=== PATIENT | female | born 1945 | race Caucasian/White ===

== ENCOUNTER 2017-06-19 04:45 | Inpatient (IN) ==
--- NOTE | 2017-06-19 11:20 | History & Physical Report ---
Date of Encounter: 06/19/17 Time of Encounter: 11:20 24 Hour HP Update - Instructions Instructions: If the History and Physical is less than 30 days old and was completed prior to A.M. admission and or procedure and has NOT been updated on calendar day of procedure please complete this update prior to performing procedure. - Update Patient reports changes in Medical Condition: No Changes in examination, assessment, or condition: No Changes in Medication: No Preop tests/diagnostics Reviewed: Yes
[2017-06-19] MEDS ORDERED: Naloxone 0.4 MG/ML INJ IVP PRN (12:56)
[2017-06-19] MEDS ORDERED: *HR* HYDROcodone/Acet 7.5/325 mg TABLET PO PRN (13:17)
[2017-06-19] MEDS ORDERED: Ipratropium/Albuterol Neb 3 ML IH PRN (13:17)
--- NOTE | 2017-06-19 13:30 | Event Note ---
Date of Encounter: 06/19/17 Time of Encounter: 12:30 - Cardiology Event Note Laboratory Tests 06/05/16 06/05/17 09:47 12:43 Potassium 4.0 Creatinine 1.25 H Est GFR (Non-Af Amer) 42 L TSH 2.012 Patient presents for direct admission for antiarrhythmic initiation of sotalol 80 mg by mouth twice a day. ECG today showed 100% atrial ventricular pacing in the 80s with QT/QTC 448/470 ms. Patient seen by Dr. Acosta June 13, 2017 in outpatient setting and set up for admission. Patient denies any significant symptoms or changes in her overall state of health since last seen in the clinic. She denies any chest pain, short of breath, palpitations, any active bleeding or blood loss. Reports compliance with current medical regimen. Of note , on SSRI. Per discussion with Dr. Acosta, will initiate sotalol 80 mg by mouth twice a day and monitor QTc closely. Continue with anticoagulation of Xarelto, has not missed any doses.
[2017-06-19] MEDS: *HR* Metformin 500 MG TABLET PO SCH (16:21)
[2017-06-19] MEDS: Insulin DETEMIR 100 UNIT/ML X5UNITS SQ SCH (21:21)
[2017-06-19] MEDS: Gabapentin 300 MG CAPSULE PO SCH (21:21)
--- NOTE | 2017-06-20 08:07 | Electrocardiograph Report ---
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
--- NOTE | 2017-06-20 08:13 | Electrocardiograph Report ---
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
[2017-06-20] MEDS: Cyanocobalamin (B-12) 1,000 MCG TABLET PO SCH (08:33)
[2017-06-20] MEDS: Aspirin 81 MG TAB.CHEW PO SCH (08:34)
[2017-06-20] MEDS: *HR* Metformin 500 MG TABLET PO SCH ×2 (08:35→17:34)
[2017-06-20] MEDS: Isosorbide MONOnitrate (24 HR) 30 MG TAB.ER.24H PO SCH (08:35)
[2017-06-20] MEDS: Ascorbic Acid 500 MG TABLET PO SCH (08:36)
[2017-06-20] MEDS ORDERED: *HR* Rivaroxaban 10 MG TABLET PO SCH (09:00)
[2017-06-20] MEDS ORDERED: Fenofibrate 54 MG TABLET PO SCH ×2 (09:00→17:00)
[2017-06-20] MEDS ORDERED: *HR* Glimepiride 4 MG TABLET PO SCH (09:00)
--- NOTE | 2017-06-20 09:02 | Cardiology Progress Note ---
Date of Encounter: 06/20/17 Time of Encounter: 09:00 Assessment and Plan (1) PAF (paroxysmal atrial fibrillation) Current Visit: Yes Status: Chronic Per Cardiology: History of paroxysmal atrial fibrillation. Currently AV pacing in the 80s. Status post 2 doses of sotalol 80 mg by mouth every 12 hours. Current QT/QTC 453 /493 ms. Remains on home dose of beta nemesio. Anticoagulated with Xarelto, has not missed any doses in 30 days. (2) Coronary artery disease Current Visit: No Status: Chronic Per Cardiology: Hx of CAD. CP free. Qualifiers: Coronary Disease-Associated Artery/Lesion type: [place] artery [place] vs. transplanted heart: [place] heart Associated angina: without angina Qualified Code(s): I25.10 - Atherosclerotic heart disease of [place] coronary artery without angina pectoris (3) Hypoglycemia Current Visit: No Status: Acute Per Cardiology: Reports last Hgb A1C 6.1. Reports recently low blood sugars in the am and PCP has been adjusting meds. Glucose noted to be in the 40's this am. Will consult Endocrine for further recs/eval-- no available inpatient coverage. Will c/s Hospitalist team. Discussion w patient/family: The assessment and plan as outlined above was discussed with the patient who expressed understanding and agreement. All questions were answered. Thank you for involving us in the care of your patient. Please call with any questions. Subjective Principal diagnosis: PAF, Sotalol Initiation Interval history: Patient denies any chest pain, shortness of breath, palpitations. Reports blood sugars this morning in the 40s and has been running low at home. She reports PCP recently adjusting diabetes medications. Reports felt a little "sleepy this morning ". Objective Vital Signs, Last 4 Hours Temp Pulse Resp BP Pulse Ox 06/20/17 08:42 98.3 F 71 18 104/63 95 General: Conversant, No Apparent Distress HEENT: Atraumatic, Normocephaly, Mucus Membranes Moist Neck: No JVD, Normal carotid pulses Cardiac: Reg Rate and Rhythm, Normal S1 and S2, No Murmur Lungs: Normal Breath Sounds, No Wheeze, Rales, Rhonchi Neuro: Alert and responsive, No focal deficits noted Abdomen: Soft, Non-Tender Skin: No rashes noted on visualized skin Musculoskeletal: No Chest Wall Tenderness Extremities: No Clubbing, No Cyanosis, No Edema, Normal Pulses Results Laboratory Tests 06/05/16 06/05/17 06/05/17 09:47 12:43 12:43 Creatinine 1.25 H Est GFR (Non-Af Amer) 42 L Hemoglobin A1c 6.1 H TSH 2.012 - EKG Interpretation EKG results cardiology: other (Remains AV paced on telemetry in the 80s) - VTE Reasons for not Prescribing Prophylaxis: Not indicated-Anticoagulated or INR therapeutic Consult Discharge Plan - Plan Referrals: Gideon Aguilera DO [Primary Care Provider] - 06/28/17 12:00 pm () Martin Acosta DO [Partnered Physician] - (OFFICE WILL CALL PATIENT WITH APPOINTMENT)
[2017-06-20] MEDS: Insulin DETEMIR 100 UNIT/ML X5UNITS SQ SCH ×2 (09:42→21:59)
[2017-06-20 10:13] LABS: Basophils % 0.5 %; Eosinophils # 0.2 K/mcL (0.0-0.6); Eosinophils % 2.6 %; Hematocrit 38.2 % (35.3-44.9); Hemoglobin 12.7 g/dL (11.5-15.4); Immature Granulocytes % 0.4 % (0-4); Immature Platelets 3.8 % (1.1-6.1); Lymphocytes # 1.2 K/mcL (0.6-4.6); Mean Corpuscular HGB Conc 33.2 g/dL (31.6-35.5); Mean Corpuscular Hemoglobin 30.3 pg (28.0-33.3); Mean Corpuscular Volume 91.2 fL (83.0-100.0); Mean Platelet Volume 10.8 fL (9.4-12.4); Monocytes # 0.6 K/mcL (0.0-1.3); Monocytes % 7.9 %; Neutrophils # 5.4 K/mcL (1.6-8.9); Platelet Count 250 K/mcL (140-400); Red Blood Count 4.19 M/mcL (3.82-4.97); Red Cell Distribution Width 14.4 % (11.5-14.5); Segmented Neutrophils % 72.6 %
[2017-06-20 10:21] LABS: Magnesium 1.9 mg/dL (1.6-2.6)
[2017-06-20 10:26] LABS: Albumin 3.5 g/dL (3.5-5.0); Albumin/Globulin Ratio 0.9 (1.1-2.2); Bilirubin,Total 0.4 mg/dL (0.2-1.2); Calcium 9.7 mg/dL (8.6-10.8); Globulin 3.8 g/dL (2.4-3.5); Potassium 4.1 mEq/L (3.5-4.5); Total Protein 7.3 g/dL (6.0-8.3)
[2017-06-20 10:47] LABS: Thyroid Stimulating Hormone 1.155 mcIU/mL (0.350-4.840)
[2017-06-20 11:20] LABS: Hemoglobin A1C 6.1 %
--- NOTE | 2017-06-20 16:05 | Internal Medicine Consult Note ---
<JesuMckay - Last Filed: 06/20/17 16:08> Date of Encounter: 06/20/17 Time of Encounter: 15:59 - Assessment and Plan (1) PAF (paroxysmal atrial fibrillation) Current Visit: Yes Status: Chronic Assessment and plan: Cardiology is primary team and initiated Sotalol yesterday Rate controlled on Lopressor 50 mg BID and heart monitor shows paced rhythm with rate in 70s Currently anticoagulated on Xarelto without issues of bleeding (2) Hypoglycemia Current Visit: Yes Status: Acute Assessment and plan: Patient's sugar well controlled today in the 100s Will decrease her long acting insulin Levemir from 40 BID to 20 units BID Start on low dose SSI with ACHS accuchecks Adding PRN dextrose for hypoglycemia (3) Insulin dependent type 2 diabetes mellitus, controlled Current Visit: Yes Status: Chronic Assessment and plan: Patient did have A1c checked today which was 6.1, unchanged from previous result last month We will decrease her basal insulin dose by half and add low dose SSI as above Recommend also decreasing her home Lantus by half upon discharge Will plan on speaking to her primary care physician Dr. Aguilera tomorrow if she is ready for DC (4) Coronary artery disease Current Visit: No Status: Chronic Assessment and plan: Cardiology following, appreciate management Continue home ASA, BB, statin, Imdur Qualifiers: Coronary Disease-Associated Artery/Lesion type: [place] artery [place] vs. transplanted heart: [place] heart Associated angina: without angina Qualified Code(s): I25.10 - Atherosclerotic heart disease of [place] coronary artery without angina pectoris (5) Hypertension Current Visit: No Status: Chronic Assessment and plan: Pressures well controlled since admission Continue home Dyazide, BB Qualifiers: Hypertension type: essential hypertension Qualified Code(s): I10 - Essential (primary) hypertension (6) CKD (chronic kidney disease), stage III Current Visit: Yes Status: Chronic Assessment and plan: Patient's creatinine this morning was 1.23 which is at her baseline Continue to monitor Cr, electrolytes and avoid nephrotoxic agents (7) DVT prophylaxis Current Visit: Yes Status: Acute Assessment and plan: Continue home Xarelto Internal Medicine - CN: HPI - Data of Consult Patient: new to practice Consult date: 06/20/17 Requesting Physician: Martin Acosta DO - Consult Narrative Reason for consult: hypoglycemia History of present illness: Ms. Ayon is a 71 year old female who was admitted by cardiology for sotalol initiation for her paroxysmal atrial fibrillation. We are being consulted for management of hypoglycemia. Patient states that she checks her sugars regularly at home and states that she has observed low readings recently. She claims that in the mornings it usually is below 60 and even through the middle of the day it is under 100. Patient denies any symptoms such as shaking, lightheadedness, diaphoresis. Her primary care physician is Dr. Quiros who manages her diabetes medications which includes metformin, Glimepiride, Trulicity, and 40 units of Lantus twice a day. She states that she just had her glimepiride reduced from 4 mg to 2 mg. Her A1c was checked during this visit and that was 6.1, and has been below 7 for the last half year. Patient does report mild chest discomfort which she relates to A. fib, but denies any shortness of breath, fevers, nausea, vomiting, diarrhea. She has also been on Xarelto for almost a year but denies any issues with bleeding. Past Med Surg Social Fam HX - Past Medical History Medical history: arthritis, asthma, atrial fibrillation, diabetes, GERD, hyperlipidemia, hypertension, malignancy, myocardial infarction Psychiatric history: anxiety, depression - Past Surgical History Surgical History: angioplasty/stent, cataract, cholecystectomy, knee replacement , orthopedic, other, pacemaker/AICD, AICD - Social History Smoking Status: Never smoker Smokeless Tobacco Status: No Alcohol use: none Drug use: none - Constitutional Constitutional: no fever(s), no falls, no weakness, no weight loss - EENT Eyes: blurry vision (at times in the morning), no loss of vision, no pain - Cardiovascular Cardiovascular ROS IM: chest pain, irregular heart rhythm, no dyspnea, no dyspnea on exertion, no edema, no lightheadedness, no syncope - Respiratory Respiratory: no cough, no dyspnea, no wheezing, no change in phlegm color - Gastrointestinal Gastrointestinal: no abdominal pain, no diarrhea, no melena, no nausea, no vomiting - Genitourinary Genitourinary: no dysuria, no hematuria, no urinary frequency, no urinary hesitancy, no urinary incontinence - Musculoskeletal Musculoskeletal ROS IM: no arthralgias, no numbness, no tingling - Integumentary Integumentary IM: no erythema, no rash - Neurological Neurological ROS: no frequent falls, no weakness Internal Medicine - CN: Meds Acyclovir [Zovirax] 800 mg PO DAILY 04/20/15 [History] Sertraline [Zoloft] 150 mg PO HS 04/20/15 [History] Simvastatin [Zocor] 40 mg PO HS 04/20/15 [History] Ipratropium/Albuterol Neb [Duoneb] 3 ml IH Q4HR PRN #50 vial.neb 06/01/16 [Rx] Ascorbate Calcium/Bioflavonoid [[place]-C 1,000 mg Tablet] 1 tab PO DAILY [History] Aspirin 81 mg PO DAILY 09/19/16 [History] Fenofibrate Nanocrystallized [Tricor] 145 mg PO DAILY 09/19/16 [History] Gabapentin [Neurontin] 300 mg PO HS 09/19/16 [History] Insulin Glargine,Hum.rec.anlog [Lantus Solostar] 40 unit SQ BID 09/19/16 [ History] Isosorbide MONOnitrate (24 HR) [Imdur] 30 mg PO DAILY 09/19/16 [History] Montelukast [Singulair] 10 mg PO DAILY 09/19/16 [History] Omeprazole [PriLOSEC] 40 mg PO DAILY 09/19/16 [History] Rivaroxaban [Xarelto] 20 mg PO DAILY 09/19/16 [History] Triamterene/HCTZ 37.5/25mg [Dyazide] 1 each PO DAILY 09/19/16 [History] Cyanocobalamin (Vitamin B-12) [Vitamin B-12] 1,000 mcg SL DAILY 01/17/17 [ History] Dulaglutide [Trulicity] 0.75 mg SQ TH 01/17/17 [History] HYDROcodone/Acet 7.5/325 mg [[place] 7.5-325 mg] 1 tab PO Q6H PRN #30 tablet 01/17 [Rx] Metoprolol [Lopressor] 100 mg PO BID 01/17/17 [History] Furosemide [Lasix] 20 mg PO DAILY PRN 06/19/17 [History] Glimepiride [Amaryl] 4 mg PO DAILY 06/19/17 [History] Metformin HCl [Metformin HCl ER] 500 mg PO BID 06/19/17 [History] 3 Allergy/AdvReac Type Severity Reaction Status Date / Time pioglitazone Allergy See Verified 02/05/17 19:04 Comments Internal Medicine - CN: Exam - Constitutional Vitals: Temp Pulse Resp BP Pulse Ox 98.0 F 73 18 109/67 94 06/20/17 11:04 06/20/17 11:04 06/20/17 11:04 06/20/17 11:04 06/20/17 11:04 General appearance IM: Present: cooperative, pleasant, no acute distress, obese , answers questions appropriately - Head Head exam: Present: atraumatic, normocephalic - Eye Eye exam: Present: EOMI, sclera anicteric - Neck Neck exam general surgery: Absent: lymphadenopathy, tenderness - Respiratory Respiratory exam: Present: CTAB. Absent: rales, respiratory distress, rhonchi, wheezes, tachypnea - Cardiovascular Cardiovascular exam IM: Present: RRR (paced on monitor), +S1, +S2, systolic murmur. Absent: irregular rhythm, tachycardia - GI/Abdominal GI/Abdominal exam IM: Present: normal bowel sounds, soft. Absent: distended, guarding, tenderness - Extremities Exam Extremities exam IM: Present: warm. Absent: pedal edema, tenderness - Neurological Exam Neurological exam: Present: alert, no focal deficits, strengths equal and symetr throughout. Absent: oriented X3, speech deficit Internal Medicine - CN: Reslt - Labs CBC & Chem 7: 06/20/17 09:28 06/20/17 09:28 Labs: Short CBC 06/20/17 Range/Units 09:28 WBC 7.4 (4.3-11.1) K/mcL Hgb 12.7 (11.5-15.4) g/dL Hct 38.2 (35.3-44.9) % Plt Count 250 (140-400) K/mcL Neutrophils # 5.4 (1.6-8.9) K/mcL BMP 06/20/17 09:28 Sodium 140 Potassium 4.1 Chloride 100 Carbon Dioxide 30 H BUN 28 H Creatinine 1.23 H Glucose 129 H Calcium 9.7 Liver Function 06/20/17 Range/Units 09:28 Total Bilirubin 0.4 (0.2-1.2) mg/dL AST 31 (5-34) Units/L ALT 20 (0-55) Units/L Alkaline Phosphatase 62 (38-126) Units/L Albumin 3.5 (3.5-5.0) g/dL Consult Discharge Plan - Plan Referrals: Gideon Aguilera DO [Primary Care Provider] - 06/28/17 12:00 pm () Martin Acosta DO [Partnered Physician] - (OFFICE WILL CALL PATIENT WITH APPOINTMENT) <VestaAnahiyaya - Last Filed: 06/20/17 17:59> Date of Encounter: 06/20/17 Internal Medicine - CN: HPI - Data of Consult Requesting Physician: Martin Acosta DO - Consult Narrative History of present illness: Ms. Ayon is a 71 year old female Internal Medicine - CN: Exam - Constitutional Vitals: Temp Pulse Resp BP Pulse Ox 98.7 F 90 18 117/65 95 06/20/17 16:03 06/20/17 16:03 06/20/17 16:03 06/20/17 16:03 06/20/17 16:03 Internal Medicine - CN: Reslt - Labs CBC & Chem 7: 06/20/17 09:28 06/20/17 09:28 Labs: Short CBC 06/20/17 Range/Units 09:28 WBC 7.4 (4.3-11.1) K/mcL Hgb 12.7 (11.5-15.4) g/dL Hct 38.2 (35.3-44.9) % Plt Count 250 (140-400) K/mcL Neutrophils # 5.4 (1.6-8.9) K/mcL BMP 06/20/17 09:28 Sodium 140 Potassium 4.1 Chloride 100 Carbon Dioxide 30 H BUN 28 H Creatinine 1.23 H Glucose 129 H Calcium 9.7 Liver Function 06/20/17 Range/Units 09:28 Total Bilirubin 0.4 (0.2-1.2) mg/dL AST 31 (5-34) Units/L ALT 20 (0-55) Units/L Alkaline Phosphatase 62 (38-126) Units/L Albumin 3.5 (3.5-5.0) g/dL - Attending Attestation I examined this patient and my medical decision-making was reviewed with the Resident Physician. I agree with the documented findings, disposition and treatment plan as described except to the extent set forth below. Ms. Ayon is a 71 year old female who was admitted by cardiology for sotalol initiation for her paroxysmal atrial fibrillation. We are being consulted for management of hypoglycemia. She did c/o feeling weak and lethargic all the time. She does have HbA1C 6.1 and also pt stated her BS always run low in 90's. Her PCP recently asked to cut back on her Glimepride to half. Currently she denied any CP / SOB. Gen: A, A, O x3 Chest: CTA, No wheezing Heart: S1 S2 + RRR No murmurs a/p 1. Paroxysmal Afib rate controlled.. cont Sotalol as per Card recommendation on Xarelto for anticoag 2. Fluctuating BS and hypoglycemia 3. DM2 HbA1C 6.1.. she is on too many medications for DM2 management which might contributing to her hypoglycemia Will talk to PCP about d/c Glimepride and cut back on Levemir to 20 BID
[2017-06-20] MEDS ORDERED: Dextrose Gel 15 GM PO PRN ×2 (16:40)
[2017-06-20] MEDS ORDERED: *HR* Dextrose 50 % in Water (Syg) 50 ML SYRINGE IVP PRN (16:40)
[2017-06-20] MEDS ORDERED: D5% in Water 1,000 ML IVC PRN (16:40)
[2017-06-20] MEDS ORDERED: *HR* Rivaroxaban 15 MG TABLET PO SCH (17:00)
[2017-06-20] MEDS ORDERED: Insulin LISPRO 300 UNITS/3 ML VIAL SQ SCH (21:00)
[2017-06-20] MEDS: Gabapentin 300 MG CAPSULE PO SCH (21:57)
[2017-06-21 04:07] LABS: Calcium 9.7 mg/dL (8.6-10.8); Potassium 3.4 mEq/L (3.5-4.5)
--- NOTE | 2017-06-21 07:52 | Event Note ---
Date of Encounter: 06/21/17 Time of Encounter: 07:48 Pt seen and examined. She states she is feeling well this morning and slept well overnight. Did not have any chest pain, shortness of breath, nausea, vomiting, diarrhea. She did report having a blood sugar this morning in the 40s but is otherwise asymptomatic. If she is to be discharged today, we recommend cutting her home basal insulin in half from 40 units BID to 20 units BID and also stopping her Glimepiride. I have personally contact her PCP Dr. Aguilera's office to inform him of these changes and have close follow up adjusting her diabetic medications during her hospital follow up visit.
[2017-06-21] MEDS: Insulin LISPRO 300 UNITS/3 ML VIAL SQ SCH ×2 (08:47→11:17)
[2017-06-21] MEDS: *HR* Metformin 500 MG TABLET PO SCH (08:47)
[2017-06-21] MEDS: Ascorbic Acid 500 MG TABLET PO SCH (08:48)
[2017-06-21] MEDS: Cyanocobalamin (B-12) 1,000 MCG TABLET PO SCH (08:48)
[2017-06-21] MEDS: Isosorbide MONOnitrate (24 HR) 30 MG TAB.ER.24H PO SCH (08:48)
[2017-06-21] MEDS: Aspirin 81 MG TAB.CHEW PO SCH (08:48)
[2017-06-21] MEDS ORDERED: Acetaminophen 325 MG TABLET PO PRN (09:52)
[2017-06-21] MEDS: Insulin DETEMIR 100 UNIT/ML X5UNITS SQ SCH (09:57)
[2017-06-21 11:19] VITALS: BP 125/81
--- NOTE | 2017-06-21 12:32 | Discharge Summary ---
Date of Encounter: 06/21/17 Time of Encounter: 12:20 - Discharge Diagnosis (1) PAF (paroxysmal atrial fibrillation) Priority: Primary Status: Chronic Comments: Direct admit for PAF-- sotalol initiation. (2) Hypoglycemia Priority: Secondary Status: Acute (3) Coronary artery disease Priority: Secondary Status: Chronic Qualifiers: Coronary Disease-Associated Artery/Lesion type: [place] artery [place] vs. transplanted heart: [place] heart Associated angina: without angina Qualified Code(s): I25.10 - Atherosclerotic heart disease of [place] coronary artery without angina pectoris - Discharge Medications Prescriptions: Sotalol [Betapace] 80 mg PO Q12H #60 tablet Home Medications: Acyclovir [Zovirax] 800 mg PO DAILY 04/20/15 [History] Sertraline [Zoloft] 150 mg PO HS 04/20/15 [History] Simvastatin [Zocor] 40 mg PO HS 04/20/15 [History] Ipratropium/Albuterol Neb [Duoneb] 3 ml IH Q4HR PRN #50 vial.neb 06/01/16 [Rx] Ascorbate Calcium/Bioflavonoid [[place]-C 1,000 mg Tablet] 1 tab PO DAILY [History] Aspirin 81 mg PO DAILY 09/19/16 [History] Fenofibrate Nanocrystallized [Tricor] 145 mg PO DAILY 09/19/16 [History] Gabapentin [Neurontin] 300 mg PO HS 09/19/16 [History] Isosorbide MONOnitrate (24 HR) [Imdur] 30 mg PO DAILY 09/19/16 [History] Montelukast [Singulair] 10 mg PO DAILY 09/19/16 [History] Omeprazole [PriLOSEC] 40 mg PO DAILY 09/19/16 [History] Rivaroxaban [Xarelto] 20 mg PO DAILY 09/19/16 [History] Triamterene/HCTZ 37.5/25mg [Dyazide] 1 each PO DAILY 09/19/16 [History] Cyanocobalamin (Vitamin B-12) [Vitamin B-12] 1,000 mcg SL DAILY 01/17/17 [ History] Dulaglutide [Trulicity] 0.75 mg SQ TH 01/17/17 [History] HYDROcodone/Acet 7.5/325 mg [[place] 7.5-325 mg] 1 tab PO Q6H PRN #30 tablet 01/17 [Rx] Furosemide [Lasix] 20 mg PO DAILY PRN 06/19/17 [History] Metformin HCl [Metformin HCl ER] 500 mg PO BID 06/19/17 [History] Insulin DETEMIR [Levemir] 20 unit SQ BID [id number] 06/21/17 [Rx] Sotalol [Betapace] 80 mg PO Q12H #60 tablet 06/21/17 [Rx] Allergies/Adverse Reactions: 3 Allergy/AdvReac Type Severity Reaction Status Date / Time pioglitazone Allergy See Verified 02/05/17 19:04 Comments Procedures/tests Complete & Pending: Procedures Performed prior 72 hours Category Date Time Status ECG 12 lead ECG [ECG] AM 0600 Y 06/20/17 06:00 Completed ECG 12 lead ECG [ECG] AM 0600 Y 06/21/17 06:00 Completed ECG 12 lead ECG [ECG] AM 0600 Y 06/22/17 06:00 Ordered ECG 12 lead ECG [ECG] Routine Y 06/19/17 11:43 Completed Date of admission: 06/19/17 11:00 Primary care physician: Yoel Pretty Consults: 06/20/17 09:08 Consult to Hospitalist [CONS] Routine Consulting Provider: Hospitalist Addis Reason for Consult: Hypoglycemia, DM2, no endo inpatient service available, please eval and provide recs for medication management Time Notified: 09:10 Call Completed: Yes Discharging clinician: Khadar Lopez Anticipated date of discharge: 06/21/17 - Patient Status Disposition: Home, Self-Care Functional capacity at discharge: independent ambulation Overall status at discharge: patient is back to baseline - Discharge Instructions Follow Up With: Gideon Aguilera DO [Primary Care Provider] - 06/28/17 12:00 pm () Martin Acosta DO [Partnered Physician] - (OFFICE WILL CALL PATIENT WITH APPOINTMENT) - Diet and Activity Diet: diabetic diet, low fat, low cholesterol, low salt diet - Hospital Course Hospital course: Ms. Ayon is a 71 year old female directly admitted for PAF found on pacer check for sotalol initiation. During hospital stay QT/QTc remained stable s/p 5 doses Sotalol 80mg PO every 12 hrs. Current QTc 470's, baseline QTc 470's. Remains AV paced, no afib noted. Remained on Xarelto 20mg home dose for AC. Had episode of hypogycemia with glucose in 40's in am-- hospitalist team consulted with medication changes made as reflected on med rec. Patient reviewed and discussed with Dr. Acosta, prepping for DC to home in stable condition. Home BB was stopped. All questions answered. F/u scheduled. - Time Spent with Patient Total time spent providing and/or coordinating discharge services: Less than 30 minutes Physical Examination Vital Signs, Last 4 Hours Temp Pulse Resp BP 06/21/17 11:18 98.1 F 96 16 125/81 General: Conversant, No Apparent Distress HEENT: Atraumatic, Normocephaly, Mucus Membranes Moist Neck: No JVD, Normal carotid pulses Cardiac: Reg Rate and Rhythm, Normal S1 and S2, No Murmur Lungs: Normal Breath Sounds, No Wheeze, Rales, Rhonchi Neuro: Alert and responsive, No focal deficits noted Abdomen: Soft, Non-Tender Skin: No rashes noted on visualized skin Musculoskeletal: No Chest Wall Tenderness Extremities: No Clubbing, No Cyanosis, No Edema, Normal Pulses - VTE Reasons for not Prescribing Prophylaxis: Not indicated-Anticoagulated or INR therapeutic
[2017-06-21] MEDS ORDERED: (Dulaglutide [Trulicity] 0.75 MG) SQ SCH (13:05)
--- NOTE | 2017-06-23 11:00 | Electrocardiograph Report ---
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
--- NOTE | 2017-06-23 11:20 | Electrocardiograph Report ---
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
== END 2017-06-21 14:05 | disposition home or self-care (01) | DRG 310 ==
LOC: 2NNU 11:00
PROVIDERS: ADMIT Internal Medicine; ATTEND Internal Medicine

== ENCOUNTER 2019-03-09 15:00 | Inpatient (IN) ==
[2019-03-09] MEDS ORDERED: Ipratropium/Albuterol Neb 3 ML IH ONE (15:17)
--- NOTE | 2019-03-09 15:34 | Emergency Department Note ---
Disposition Clinical Impression: Chest pain Qualifiers: Chest pain type: unspecified Qualified Code(s): R07.9 - Chest pain, unspecified Dyspnea Qualifiers: Dyspnea type: unspecified Qualified Code(s): R06.00 - Dyspnea, unspecified Disposition: Admitted As Inpatient Condition: Good Referrals: NONE,PCP [Primary Care Provider] - Time of Disposition: 19:52 General Adult HPI - General Stated complaint: SWATI Time Seen by Provider: 03/09/19 15:16 Source: patient Mode of arrival: ambulatory Limitations: no limitations Nursing Notes Reviewed: Yes Vital Signs Reviewed: Yes - History of Present Illness HPI Narrative: Patient is a 73-year-old female that presents emergency Department with reports of shortness of breath and chest pain. Patient is from his chest pain as heaviness in the center of her chest that does radiate into her back. Patient states that she has short of breath, occasionally nauseating gets diaphoretic when she has the chest pressure. Patient reports that she has had previous MIs with stents that of been placed. Patient states that this feels somewhat different than her prior MIs. She states that she did not have actual chest love n at that time. Patient states that she does have a history of hyperlipidemia and diabetes. Pain Scale: 0 - Related Data Home Medications Medication Instructions Recorded Confirmed Acyclovir [Zovirax] 800 mg PO DAILY 04/20/15 02/02/19 Ascorbate Calcium/Bioflavonoid 1 tab PO DAILY 09/19/16 01/31/19 [[place]-C 1,000 mg Tablet] Aspirin 81 mg PO DAILY 09/19/16 01/31/19 Fenofibrate Nanocrystallized 145 mg PO DAILY 09/19/16 02/02/19 [Tricor] Gabapentin [Neurontin] 300 mg PO DAILY 09/19/16 02/02/19 Isosorbide MONOnitrate (24 HR) 30 mg PO DAILY 09/19/16 02/02/19 [Imdur] Montelukast [Singulair] 10 mg PO DAILY 09/19/16 01/31/19 Omeprazole [PriLOSEC] 40 mg PO DAILY 09/19/16 02/02/19 Rivaroxaban [Xarelto] 20 mg PO DAILY 09/19/16 02/02/19 Triamterene/HCTZ 37.5/25mg 1 tab PO DAILY 09/19/16 02/02/19 [Dyazide] Dulaglutide [Trulicity] 0.75 mg SQ MO 01/17/17 02/02/19 Hydrocodone/Acetaminophen [[place] 1 tab PO Q6H PRN 10/05/18 02/02/19 10-325 Tablet] Insulin Glargine [Lantus] 40 unit SQ BID 10/05/18 02/02/19 Metformin HCl [Fortamet] 500 mg PO BID 10/05/18 02/02/19 Sertraline [Zoloft] 150 mg PO HS 10/05/18 02/02/19 Simvastatin [Zocor] 40 mg PO DAILY 10/05/18 02/02/19 Fluticasone Propionate Nasal 1 spray NS DAILY PRN 10/22/18 01/31/19 [Flonase] Furosemide [Lasix] 20 mg PO DAILY PRN 11/28/18 02/02/19 raNITIdine HCl [Zantac] 150 mg PO BID PRN 11/28/18 01/31/19 Sotalol HCl [Betapace] 160 mg PO BID 02/02/19 02/02/19 Previous Rx's Medication Instructions Recorded Diltiazem CD (24hr) [Cardizem CD] 120 mg PO DAILY #30 cap.er.24h 02/05/19 Allergies Allergy/AdvReac Type Severity Reaction Status Date / Time pioglitazone AdvReac See Verified 11/28/18 07:31 Comments All systems ED: reviewed and negative except as stated. 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 Absent: respiratory distress - Cardiovascular Cardiovascular exam: Present: regular rate, normal rhythm, normal heart sounds - Abdominal Exam Abdominal exam: Present: soft, Non-Tender, normal bowel sounds - Neurological Exam Neurological exam: Present: alert, oriented X3 - Psychiatric Psychiatric exam: Present: normal affect, normal mood - Skin Skin exam: Present: warm, dry, intact Course Vital Signs Temperature 97.7 F 03/09/19 15:00 Pulse Rate 113 03/09/19 15:00 Respiratory Rate 20 03/09/19 15:00 Blood Pressure 116/74 03/09/19 15:00 O2 Sat by Pulse Oximetry 96 03/09/19 15:00 Temperature 97.7 F 03/09/19 15:07 Pulse Rate 95 03/09/19 19:14 Respiratory Rate 16 03/09/19 19:14 Blood Pressure 118/97 03/09/19 19:14 O2 Sat by Pulse Oximetry 95 03/09/19 19:14 Oxygen Delivery Oxygen Delivery Room Air Medical Decision Making - MDM Narrative Medical decision making narrative: Due the patient presents emergency Department with reports of chest pain shortness of breath we will obtain basic laboratory testing, chest x-ray and EKG. patient had an elevated d-dimer. A CT of the chest was ordered which was negative for pulmonary emboli. The patient did have evidence of a possible pleural effusion versus lymphogenic spread of tumor. This information was relayed to the patient. Patient states that she has had fluid around her lungs in the past and feels that is probably likely what it is. Her troponin was negative. EKG did not show any acute ischemic changes. However due to the patient having a heart score of 5 the patient will need to be admitted to the hospital for further evaluation and management of her chest discomfort, shortness of breath and the findings on CT scan. I called and spoke with the admitting hospitalist Dr. Rosario and she is accepted the patient to their service. Patient be admitted tot slit this time for further evaluation and management of her chest pain and the CT findings. - Medical Records Medical records reviewed: Yes I reviewed the patient's medical records. - Lab Data Lab results reviewed: Yes I reviewed the patient's lab results. Result diagrams: 03/09/19 15:24 03/09/19 17:10 Lab Results 03/09/19 03/09/19 03/09/19 Range/Units 15:24 15:24 15:24 WBC 8.4 (4.3-11.1) K/mcL RBC 3.77 L (3.82-4.97) M/mcL Hgb 10.9 L (11.5-15.4) g/dL Hct 33.5 L (35.3-44.9) % MCV 88.9 (83.0-100.0) fL MCH 28.9 (28.0-33.3) pg MCHC 32.5 (31.6-35.5) g/dL RDW 16.0 H (11.5-14.5) % Plt Count 299 (140-400) K/mcL MPV 10.3 (9.4-12.4) fL Immature Gran % 0.5 (0-4) % Seg Neutrophils % 76.2 % Lymphocytes % 11.5 % Monocytes % 9.0 % Eosinophils % 2.1 % Basophils % 0.7 % Neutrophils # 6.4 (1.6-8.9) K/mcL Lymphocytes # 1.0 (0.6-4.6) K/mcL Monocytes # 0.8 (0.0-1.3) K/mcL Eosinophils # 0.2 (0.0-0.6) K/mcL Basophils # 0.1 (0.0-0.2) K/mcL D-Dimer 1067 H (0-500) ng/mLFEU Sodium (136-145) mEq/L Potassium (3.5-5.1) mEq/L Chloride (98-107) mEq/L Carbon Dioxide (23-29) mEq/L BUN (8-23) mg/dL Creatinine (0.60-1.20) mg/dL Est GFR ( Amer) (> 60) Est GFR (Non-Af Amer) (> 60) BUN/Creatinine Ratio (6-26) Glucose (70-105) mg/dL Calculated Osmolality (280-300) Calcium (8.6-10.3) mg/dL Troponin I 0.03 (< 0.04) ng/mL B-Natriuretic Peptide (Less than 100) pg/mL Specimen Rejected 03/09/19 03/09/19 03/09/19 Range/Units 15:24 16:11 17:10 WBC (4.3-11.1) K/mcL RBC (3.82-4.97) M/mcL Hgb (11.5-15.4) g/dL Hct (35.3-44.9) % MCV (83.0-100.0) fL MCH (28.0-33.3) pg MCHC (31.6-35.5) g/dL RDW (11.5-14.5) % Plt Count (140-400) K/mcL MPV (9.4-12.4) fL Immature Gran % (0-4) % Seg Neutrophils % % Lymphocytes % % Monocytes % % Eosinophils % % Basophils % % Neutrophils # (1.6-8.9) K/mcL Lymphocytes # (0.6-4.6) K/mcL Monocytes # (0.0-1.3) K/mcL Eosinophils # (0.0-0.6) K/mcL Basophils # (0.0-0.2) K/mcL D-Dimer (0-500) ng/mLFEU Sodium 135 L (136-145) mEq/L Potassium 3.5 (3.5-5.1) mEq/L Chloride 99 (98-107) mEq/L Carbon Dioxide 27 (23-29) mEq/L BUN 31 H (8-23) mg/dL Creatinine 1.34 H (0.60-1.20) mg/dL Est GFR ( Amer) 47 L (> 60) Est GFR (Non-Af Amer) 39 L (> 60) BUN/Creatinine Ratio 23 (6-26) Glucose 77 (70-105) mg/dL Calculated Osmolality 285 (280-300) Calcium 9.2 (8.6-10.3) mg/dL Troponin I (< 0.04) ng/mL B-Natriuretic Peptide 406 H (Less than 100) pg/mL Specimen Rejected Hemolyzed - Radiology Data Radiology results reviewed: Yes I reviewed the patient's radiology results. Chest X-Ray 03/09/19 15:17 IMPRESSION: No acute cardiopulmonary disease. D/ / Pepito Espinosa MD / Pepito Espinosa MD Interpreting Provider: Pepito Espinosa MD Chest CTA 03/09/19 16:01 IMPRESSION: No findings to suggest pulmonary embolus Slight increase in the mediastinal, hilar and axillary adenopathy. Right pleural effusion with dependent atelectasis Asymmetric interstitial prominence in the periphery of the right lung with thickening of the right major fissure. This could be due to the effusion, however developing lymphangitic tumor spread would be difficult to exclude. Continued follow-up recommended. Reflux of contrast into the inferior vena cava and the hepatic veins suggesting elevated right heart pressure. D/ / Сергей Caballero / Сергей Caballero Interpreting Provider: Сергей Caballero - EKG Data EKG #1 EKG attestation: Yes I reviewed and interpreted this EKG. EKG results narrative: EKG shows a paced rhythm at 190 bpm, MT interval of 98, QRS duration 153, QTC of 573. This was evidence of STEMI and EKG.
[2019-03-09 15:41] LABS: Basophils # 0.1 K/mcL (0.0-0.2); Basophils % 0.7 %; Eosinophils # 0.2 K/mcL (0.0-0.6); Eosinophils % 2.1 %; Hematocrit 33.5 % (35.3-44.9); Hemoglobin 10.9 g/dL (11.5-15.4); Immature Granulocytes % 0.5 % (0-4); Lymphocytes % 11.5 %; Mean Corpuscular HGB Conc 32.5 g/dL (31.6-35.5); Mean Corpuscular Hemoglobin 28.9 pg (28.0-33.3); Mean Corpuscular Volume 88.9 fL (83.0-100.0); Mean Platelet Volume 10.3 fL (9.4-12.4); Monocytes # 0.8 K/mcL (0.0-1.3); Neutrophils # 6.4 K/mcL (1.6-8.9); Platelet Count 299 K/mcL (140-400); Red Blood Count 3.77 M/mcL (3.82-4.97); Segmented Neutrophils % 76.2 %; White Blood Count 8.4 K/mcL (4.3-11.1)
[2019-03-09] MEDS ORDERED: Aspirin 81 MG TAB.CHEW PO STA (15:55)
--- NOTE | 2019-03-09 15:55 | Emergency Department Note ---
Disposition Clinical Impression: ACS (acute coronary syndrome) Disposition: Still a Patient Referrals: NONE,PCP [Primary Care Provider] - Time of Disposition: 15:55 General Adult HPI - General Stated complaint: SWATI Time Seen by Provider: 03/09/19 15:16 Source: patient Mode of arrival: ambulatory Limitations: no limitations Nursing Notes Reviewed: Yes Vital Signs Reviewed: Yes - History of Present Illness HPI Narrative: Attestation note: Patient was seen with the emergency medicine resident/nurse practitioner/physician electrician's assistant/transitional resident/medical student: Dr. SHARON PAEZ. This includes well any procedures performed for this significant portion thereof which are to include EKG and bedside ultrasound I have personally performed a face to face evaluation on this patient. I have reviewed and agree with history and physical examination patient management and disposition. Briefly the salient points of the case are as follows: Sodium 3-year-old female HEART score of 5. EKG shows acute ischemic changes presents to the ER with family chief complaint of protein breathing fatigue. She has stents. No recent cardiac workup. Patient will undergo troponin screening labs chest x- ray. Admission anticipated for acute coronary syndrome. Patient will be given aspirin. Admission disposition pending. Pain Scale: 0 - Related Data Home Medications Medication Instructions Recorded Confirmed Acyclovir [Zovirax] 800 mg PO DAILY 04/20/15 02/02/19 Ascorbate Calcium/Bioflavonoid 1 tab PO DAILY 09/19/16 01/31/19 [[place]-C 1,000 mg Tablet] Aspirin 81 mg PO DAILY 09/19/16 01/31/19 Fenofibrate Nanocrystallized 145 mg PO DAILY 09/19/16 02/02/19 [Tricor] Gabapentin [Neurontin] 300 mg PO DAILY 09/19/16 02/02/19 Isosorbide MONOnitrate (24 HR) 30 mg PO DAILY 09/19/16 02/02/19 [Imdur] Montelukast [Singulair] 10 mg PO DAILY 09/19/16 01/31/19 Omeprazole [PriLOSEC] 40 mg PO DAILY 09/19/16 02/02/19 Rivaroxaban [Xarelto] 20 mg PO DAILY 09/19/16 02/02/19 Triamterene/HCTZ 37.5/25mg 1 tab PO DAILY 09/19/16 02/02/19 [Dyazide] Dulaglutide [Trulicity] 0.75 mg SQ MO 01/17/17 02/02/19 Hydrocodone/Acetaminophen [[place] 1 tab PO Q6H PRN 10/05/18 02/02/19 10-325 Tablet] Insulin Glargine [Lantus] 40 unit SQ BID 10/05/18 02/02/19 Metformin HCl [Fortamet] 500 mg PO BID 10/05/18 02/02/19 Sertraline [Zoloft] 150 mg PO HS 10/05/18 02/02/19 Simvastatin [Zocor] 40 mg PO DAILY 10/05/18 02/02/19 Fluticasone Propionate Nasal 1 spray NS DAILY PRN 10/22/18 01/31/19 [Flonase] Furosemide [Lasix] 20 mg PO DAILY PRN 11/28/18 02/02/19 raNITIdine HCl [Zantac] 150 mg PO BID PRN 11/28/18 01/31/19 Sotalol HCl [Betapace] 160 mg PO BID 02/02/19 02/02/19 Previous Rx's Medication Instructions Recorded Diltiazem CD (24hr) [Cardizem CD] 120 mg PO DAILY #30 cap.er.24h 02/05/19 Allergies Allergy/AdvReac Type Severity Reaction Status Date / Time pioglitazone AdvReac See Verified 11/28/18 07:31 Comments Constitutional: Denies: fever Cardiovascular: Reports: chest pain Respiratory: Reports: dyspnea Gastrointestinal: Reports: nausea Musculoskeletal: Reports: back pain Neurological: Denies: weakness, numbness, paresthesias Past Medical History - Past Medical History Medical history: Reports: arthritis, asthma, atrial fibrillation, cancer, coronary artery disease, diabetes, fibromyalgia, GERD, hyperlipidemia, malignancy, myocardial infarction, renal disease, other Surgical history: Reports: pacemaker Psychiatric history: Reports: anxiety, depression 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 history: Reports: no 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 history - Social History Smoking Status: Never smoker Smokeless Tobacco Status: No Alcohol use: Reports: none Drug use: Reports: none Physical Exam - General Limitations: no limitations General appearance: alert, in no apparent distress Course Vital Signs Temperature 97.7 F 03/09/19 15:00 Pulse Rate 113 03/09/19 15:00 Respiratory Rate 20 03/09/19 15:00 Blood Pressure 116/74 07/21/19 15:00 O2 Sat by Pulse Oximetry 96 03/09/19 15:00 Temperature 97.7 F 03/09/19 15:07 Pulse Rate 113 03/09/19 15:07 Respiratory Rate 16 03/09/19 15:28 Blood Pressure 116/74 03/09/19 15:07 O2 Sat by Pulse Oximetry 95 03/09/19 15:28 Oxygen Delivery Oxygen Delivery Room Air Medical Decision Making - Lab Data Result diagrams: 03/09/19 15:24 Lab Results 03/09/19 Range/Units 15:24 WBC 8.4 (4.3-11.1) K/mcL RBC 3.77 L (3.82-4.97) M/mcL Hgb 10.9 L (11.5-15.4) g/dL Hct 33.5 L (35.3-44.9) % MCV 88.9 (83.0-100.0) fL MCH 28.9 (28.0-33.3) pg MCHC 32.5 (31.6-35.5) g/dL RDW 16.0 H (11.5-14.5) % Plt Count 299 (140-400) K/mcL MPV 10.3 (9.4-12.4) fL Immature Gran % 0.5 (0-4) % Seg Neutrophils % 76.2 % Lymphocytes % 11.5 % Monocytes % 9.0 % Eosinophils % 2.1 % Basophils % 0.7 % Neutrophils # 6.4 (1.6-8.9) K/mcL Lymphocytes # 1.0 (0.6-4.6) K/mcL Monocytes # 0.8 (0.0-1.3) K/mcL Eosinophils # 0.2 (0.0-0.6) K/mcL Basophils # 0.1 (0.0-0.2) K/mcL
[2019-03-09] MEDS ORDERED: Isovue-370 500 ML BOTTLE IVP ONE (16:01)
[2019-03-09 17:43] LABS: Calcium 9.2 mg/dL (8.6-10.3); Potassium 3.5 mEq/L (3.5-5.1)
[2019-03-09] MEDS ORDERED: 0.9 % Sodium Chloride 1,000 ML IVC ONE (17:52)
[2019-03-09] MEDS ORDERED: Naloxone 0.4 MG/ML INJ IVP PRN (20:39)
--- NOTE | 2019-03-09 20:41 | Internal Med History&Physical ---
<Jeffrey Gaytan - Last Filed: 03/09/19 22:06> Date of Encounter: 03/09/19 Time of Encounter: 20:41 Internal Medicine - H&P: HPI Chief complaint: SOB Admitted From: Emergency Dept Plans for Post Hospital Care: Home History of present illness: Ms. Ayon is a 73 year old female with a PMHx of HFpEF, CAD, DM, asthma, Afib on sotalol and xarelto, HLD, GERD, CKD III who presents to ED with a complaint of S OB x 1 week. Patient states that shortness of breath has been progressive and worsening since onset. It is exacerbated with exertion, lying flat. She has never experienced something of this extent before. She also admits to waking up at night gasping for air with a choking sensation as well as lower extremity swelling, 9 pound weight gain in the last week. Denies any symptoms of fevers, sputum production, chills, chest pains. She does admit to a nonproductive cough with some chest pressure more often when she lies flat but is nonexertional. Review of systems otherwise negative including vomiting, urinary frequency/urgency/dysuria/color/change in color, no change in bowel movements. In the emergency department, heart rate was mildly elevated at 113, respiratory rate 20, she is tolerating room air. Laboratory results were significant for a baseline anemia with hemoglobin 10.9, sodium 135, BUN/creatinine/creatinine of 31/1.34 which is near her baseline. Troponin was 0.03 and BNP was 406. D-dimer was ordered and was mildly elevated at about [address] of the chest was ordered. This showed no evidence of pulmonary embolus but did show a right- sided pleural effusion with atelectasis. She was given 1 L of fluid prior to her CTA. Patient does have a significant workup in the past for her cardiovascular disease including left heart catheterization most recently in 2017. Most recent echocardiogram in August of this year showing ejection fraction of 55% and i ndeterminant diastolic dysfunction. Also noted was mild valvular disease and mild pulmonary hypertension. Patient denies any recent use of NSAIDs and states she has been eating and drinking well. Past medical history: As above, as well as arthritis, fibromyalgia, venous stasis ulcers Past surgical history: Orthopedic, transvenous pacemaker, right heel bone cancer Social history: Never smoker, denies alcohol or drug use Family history: Very significant history of diabetes, heart disease in both parents and siblings. 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 R TKR 1989. RIGHT ANKLE LYMPHOMA SURGERY 1992. MD WITH PCI x2 stents 2001. RIGHT SHOULDER repair 1999. Left Shoulder total replacement 2005. colonoscopy - Social History Smoking Status: Never smoker Smokeless Tobacco Status: No Alcohol use: none Drug use: none - Family History Mother Adopted: No Family Member Ethnicity: Non- Living Status: Hx Family Cardiac Disorders: Yes (CHF) Hx Family Respiratory Disorders: Yes Hx Family Cancer: No Hx Family GI Disorders: No Hx Family Endocrine Disorder: Yes (diabetic) Hx Family Neuromuscular Disorders: No Hx Family Neurologic Disorders: No Hx Family HEENT Disorders: No Hx Family Autoimmune Disorders: No Father Adopted: No Living Status: Hx Family Cardiac Disorders: Yes Hx Family Respiratory Disorders: Yes Hx Family Cancer: No Hx Family GI Disorders: No Hx Family Endocrine Disorder: Yes (Diabetic) Hx Family Neuromuscular Disorders: No Hx Family Neurologic Disorders: No Hx Family HEENT Disorders: No Hx Family Autoimmune Disorders: No Brother Living Status: Hx Family Cardiac Disorders: Yes Hx Family Neurologic Disorders: Yes (CVA) Internal Medicine - H&P: Meds Acyclovir [Zovirax] 800 mg PO DAILY 04/20/15 [History] Ascorbate Calcium/Bioflavonoid [[place]-C 1,000 mg Tablet] 1 tab PO DAILY 09/19/16 [History] Aspirin 81 mg PO DAILY 09/19/16 [History] Fenofibrate Nanocrystallized [Tricor] 145 mg PO DAILY 09/19/16 [History] Gabapentin [Neurontin] 300 mg PO DAILY 09/19/16 [History] Isosorbide MONOnitrate (24 HR) [Imdur] 30 mg PO DAILY 09/19/16 [History] Montelukast [Singulair] 10 mg PO DAILY 09/19/16 [History] Omeprazole [PriLOSEC] 40 mg PO DAILY 09/19/16 [History] Rivaroxaban [Xarelto] 20 mg PO DAILY 09/19/16 [History] Triamterene/HCTZ 37.5/25mg [Dyazide] 1 tab PO DAILY 09/19/16 [History] Dulaglutide [Trulicity] 0.75 mg SQ MO 01/17/17 [History] Hydrocodone/Acetaminophen [[place] 10-325 Tablet] 1 tab PO Q6H PRN 10/05/18 [History] Insulin Glargine [Lantus] 40 unit SQ BID 10/05/18 [History] Metformin HCl [Fortamet] 500 mg PO BID 10/05/18 [History] Sertraline [Zoloft] 150 mg PO HS 10/05/18 [History] Simvastatin [Zocor] 40 mg PO DAILY 10/05/18 [History] Fluticasone Propionate Nasal [Flonase] 1 spray NS DAILY PRN 10/22/18 [History] Furosemide [Lasix] 20 mg PO DAILY PRN 11/28/18 [History] raNITIdine HCl [Zantac] 150 mg PO BID PRN 11/28/18 [History] Sotalol HCl [Betapace] 160 mg PO BID 02/02/19 [History] Diltiazem CD (24hr) [Cardizem CD] 120 mg PO DAILY #30 cap.er.24h 02/05/19 [Rx] Allergy/AdvReac Type Severity Reaction Status Date / Time pioglitazone AdvReac See Verified 11/28/18 07:31 Comments All Systems PM: A 10-system review of systems was performed and is negative for pertinent findings except as documented above in the HPI. Review of systems: - Constitutional: admits to weight gain. Denies fevers, chills, weight loss, generalized fatigue - Head/Neck: Denies SOLITARIO, neck stiffness - EENT: Admits to epistaxis. Denies vision changes/blurriness, auditory changes, rhinorrhea, congestion, sore throat, odynaphagia - CVS: Admits to PND, edema, orthopnea. Denies chest pain, palpitations - Pulm: Admits to SOB, cough. Denies sputum, hematemesis, wheezing - GI: admits to some nausea. Denies abdominal pain, anorexia, vomiting, diarrhea, constipation, melena - : Denies dysuria, increased frequency, urgency, hematuria, - MSK: Denies joint pain, limited ROM - Skin: Denies rashes, ulcers, color changes, - Neuro: Denies SOLITARIO, paresthesias, focal deficits, ataxia, - Constitutional Vitals: Temp Pulse Resp BP Pulse Ox 97.7 F 95 16 118/97 95 03/09/19 15:07 03/09/19 19:14 03/09/19 19:14 03/09/19 19:14 03/09/19 19:14 Exam: Gen.: Vitals noted. No acute distress. AAOx3, resting comfortably in bed. HEENT: PERRL/EOMI, oropharynx clear, Normocephalic, atraumatic, MMM Neck: Supple. No adenopathy. No thyroid nodules. Cardiac: irregularly irregular rhythm, no murmur, +S1/S2, 2+ BLE edema Pulmonary: Decreased in right bases, otherwise CTA bilaterally, no wheezes, rales or rhonchi, equal chest expansion, unlabored breathing Abdomen: soft, nontender, BS noted, no guarding, no palpable HSM Skin: warm and dry, no visible lesions. Right leg wrapped in kerlix. MSK: ROM intact, no joint swelling noted, gait no assessed while in bed. Non tender calf or clubbing Neuro: A&Ox3, moves all extremities, no focal deficits, sensation intact, Psych: Appropriate mood and behavior, AOx3 Internal Med - H&P Results - Labs CBC & Chem 7: 03/09/19 15:24 03/09/19 17:10 Labs: Short CBC 03/09/19 Range/Units 15:24 WBC 8.4 (4.3-11.1) K/mcL Hgb 10.9 L (11.5-15.4) g/dL Hct 33.5 L (35.3-44.9) % Plt Count 299 (140-400) K/mcL Neutrophils # 6.4 (1.6-8.9) K/mcL BMP 03/09/19 17:10 Sodium 135 L Potassium 3.5 Chloride 99 Carbon Dioxide 27 BUN 31 H Creatinine 1.34 H Glucose 77 Calcium 9.2 Cardiac Enzymes 03/09/19 Range/Units 15:24 Troponin I 0.03 (< 0.04) ng/mL - Impressions ITS Impressions Chest X-Ray 03/09/19 15:17 IMPRESSION: No acute cardiopulmonary disease. D/ / Pepito Espinosa MD / Pepito Espinosa MD Interpreting Provider: Pepito Espinosa MD Chest CTA 03/09/19 16:01 IMPRESSION: No findings to suggest pulmonary embolus Slight increase in the mediastinal, hilar and axillary adenopathy. Right pleural effusion with dependent atelectasis Asymmetric interstitial prominence in the periphery of the right lung with thickening of the right major fissure. This could be due to the effusion, however developing lymphangitic tumor spread would be difficult to exclude. Continued follow-up recommended. Reflux of contrast into the inferior vena cava and the hepatic veins suggesting elevated right heart pressure. D/ / Сергей Caballero / Сергей Caballero Interpreting Provider: Сергей Caballero - Assessment and Plan (1) Acute on chronic diastolic (congestive) heart failure Current Visit: Yes Status: Acute Assessment and plan: - Suspect exacerbation of HFpEF given clinical history - Patient reports PND, orthopnea, weight gain, dyspnea on exertion - BNP mildly elevated at 406 - No leukocytosis or fever to suggest PNA. - CXR shows R sided pleural effusion, CTA shows same - Currently tolerating Room air - Patient does have baseline CKD III which may be mildly worsened suggesting po ssible cardiorenal syndrome - Most recent Echo in August 2018 shows EF of 55%, indeterminate diastolic dysfunction - Most recent LHC in 2016 showed patent stents, recommended medical management Plan - Will start diuresis with lasix 40 mg IV BID - Expect a rise in creatinine given diruesis and contrast dye - Expect that with further diuresis creatinine will improve if this is truly cardiorenal syndrome - Can consider Metolazone prior to AM lasix if patient dose not improve - Strict I/Os, fluid restriction diet - Repeat limited Echo (2) CKD (chronic kidney disease), stage III Current Visit: Yes Status: Chronic Assessment and plan: - BUN/Cr of 19/09.34 - Baseline Cr appears to be around 09-1.3 in the past - Baseline difficult to interpret due to variability, however remains in stage III category - Patient reports good oral intake and no NSAID use - Expect that creatinine will rise in near future due to diuresis as well as contrast dye from CTA Plan - Will continue to monitor and diuresis as above - Renal dosing - Will also order protein/creatinine ratio of urine to assess for intrarenal etiology (3) Diabetes Current Visit: Yes Status: Chronic Assessment and plan: Insulin-dependent diabetes at home Appears to be relatively well controlled with the glucose on admission of 77 We will continue sliding scale insulin with ADA diet Qualifiers: Diabetes mellitus type: type 2 Diabetes mellitus assisted insulin use: with assisted use Diabetes mellitus complication status: with skin complications Diabetes mellitus complication detail: with foot ulcer Qualified Code(s): E11.621 - Type 2 diabetes mellitus with foot ulcer; L97.509 - Non-pressure chronic ulcer of other part of unspecified foot with unspecified severity; 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 There are some T-wave inversions however these are on old EKG as well Troponin 0.03 Continue home medications of aspirin, statin Qualifiers: Coronary Disease-Associated Artery/Lesion type: [place] artery [place] vs. transplanted heart: [place] heart Associated angina: without angina Qualified Code(s): I25.10 - Atherosclerotic heart disease of [place] coronary artery without angina pectoris (5) Hypertension Current Visit: Yes Status: Chronic Assessment and plan: Well-controlled this time Continue home medications except for diuretics in the setting of a CHF as above Qualifiers: Hypertension type: essential hypertension Qualified Code(s): I10 - Essential (primary) hypertension (6) Venous ulcer of right lower extremity without varicose veins Current Visit: Yes Status: Chronic Assessment and plan: Chronic per patient Patient states has been well healing Wound care while inpatient (7) Dyspnea Current Visit: Yes Status: Acute Assessment and plan: Secondary CHF exacerbation as above Qualifiers: Dyspnea type: orthopnea Qualified Code(s): R06.01 - Orthopnea (8) DVT prophylaxis Current Visit: Yes Status: Acute Assessment and plan: Xarelto - Time Spent With Patient Total time spent is greater than 50% in coordination of care (as documented) at patient's floor/unit and/or counseling patient: <Teena Rosario - Last Filed: 03/10/19 07:33> Date of Encounter: 03/09/19 Internal Medicine - H&P: HPI History of present illness: Ms. Ayon is a 73 year old female All Systems PM: A 10-system review of systems was performed and is negative for pertinent findings except as documented above in the HPI. - Constitutional Vitals: Temp Pulse Resp BP Pulse Ox 98 F 121 18 111/73 95 03/10/19 03:21 03/10/19 03:21 03/10/19 03:21 03/10/19 03:21 03/10/19 03:21 Internal Med - H&P Results - Labs CBC & Chem 7: 03/10/19 04:59 03/10/19 04:59 Labs: Short CBC 03/09/19 03/10/19 Range/Units 15:24 04:59 WBC 8.4 8.9 (4.3-11.1) K/mcL Hgb 10.9 L 10.5 L (11.5-15.4) g/dL Hct 33.5 L 33.3 L (35.3-44.9) % Plt Count 299 263 (140-400) K/mcL Neutrophils # 6.4 6.6 (1.6-8.9) K/mcL BMP 03/09/19 03/10/19 17:10 04:59 Sodium 135 L 139 Potassium 3.5 3.2 L Chloride 99 98 Carbon Dioxide 27 26 BUN 31 H 29 H Creatinine 1.34 H 1.49 H Glucose 77 104 Calcium 9.2 8.9 Cardiac Enzymes 03/09/19 03/09/19 03/10/19 Range/Units 15:24 21:45 04:59 Troponin I 0.03 < 0.03 0.03 (< 0.04) ng/mL - Impressions ITS Impressions Chest X-Ray 03/09/19 15:17 IMPRESSION: No acute cardiopulmonary disease. D/ / Pepito Espinosa MD / Pepito Espinosa MD Interpreting Provider: Pepito Espinosa MD Chest CTA 03/09/19 16:01 IMPRESSION: No findings to suggest pulmonary embolus Slight increase in the mediastinal, hilar and axillary adenopathy. Right pleural effusion with dependent atelectasis Asymmetric interstitial prominence in the periphery of the right lung with thickening of the right major fissure. This could be due to the effusion, however developing lymphangitic tumor spread would be difficult to exclude. Continued follow-up recommended. Reflux of contrast into the inferior vena cava and the hepatic veins suggesting elevated right heart pressure. D/ / Сергей Caballero / Сергей Caballero Interpreting Provider: Сергей Caballero - Time Spent With Patient Total time spent is greater than 50% in coordination of care (as documented) at patient's floor/unit and/or counseling patient: - Attending Attestation I performed a history and physical examination of the patient and discussed his management with the resident. I reviewed the residents note and agree with the documented findings and plan of care.
[2019-03-09] MEDS ORDERED: *HR* Dextrose 50 % in Water (Syg) 50 ML SYRINGE IVP PRN (21:03)
[2019-03-09] MEDS ORDERED: Dextrose Gel 15 GM/37.5 ML TUBE PO PRN ×2 (21:03)
[2019-03-09] MEDS ORDERED: D5% in Water 1,000 ML IVC PRN (21:03)
[2019-03-09] MEDS ORDERED: Famotidine 20 MG TABLET PO PRN (21:04)
[2019-03-09] MEDS ORDERED: *HR* HYDROcodone/Acet 10/325 mg TABLET PO PRN (21:04)
[2019-03-09] MEDS: Furosemide 40 MG/4 ML VIAL IVP SCH (22:19)
[2019-03-10 01:27] LABS: Creatinine,Urine 11 mg/dL
[2019-03-10 06:31] LABS: Basophils # 0.1 K/mcL (0.0-0.2); Basophils % 0.6 %; Eosinophils # 0.2 K/mcL (0.0-0.6); Hematocrit 33.3 % (35.3-44.9); Hemoglobin 10.5 g/dL (11.5-15.4); Immature Granulocytes % 0.3 % (0-4); Lymphocytes # 1.3 K/mcL (0.6-4.6); Lymphocytes % 14.8 %; Mean Corpuscular HGB Conc 31.5 g/dL (31.6-35.5); Mean Corpuscular Hemoglobin 28.3 pg (28.0-33.3); Mean Corpuscular Volume 89.8 fL (83.0-100.0); Mean Platelet Volume 10.5 fL (9.4-12.4); Monocytes # 0.8 K/mcL (0.0-1.3); Monocytes % 8.6 %; Neutrophils # 6.6 K/mcL (1.6-8.9); Platelet Count 263 K/mcL (140-400); Red Blood Count 3.71 M/mcL (3.82-4.97); Red Cell Distribution Width 15.9 % (11.5-14.5); Segmented Neutrophils % 73.7 %; White Blood Count 8.9 K/mcL (4.3-11.1)
[2019-03-10 06:54] LABS: Calcium 8.9 mg/dL (8.6-10.3); Chol/HDL Ratio 4.8 (0-4.9); Magnesium 1.9 mg/dL (1.6-2.6); Potassium 3.2 mEq/L (3.5-5.1); Troponin I 0.03 ng/mL (< 0.04)
[2019-03-10] MEDS: Insulin LISPRO 300 UNITS/3 ML VIAL SQ SCH ×4 (08:48→22:48)
[2019-03-10] MEDS ORDERED: Diltiazem CD (24hr) 120 MG CAPSULE PO SCH (09:00)
[2019-03-10] MEDS ORDERED: *HR* Rivaroxaban 10 MG TABLET PO SCH (09:00)
[2019-03-10] MEDS: Gabapentin 300 MG CAPSULE PO SCH (09:49)
[2019-03-10] MEDS: Isosorbide MONOnitrate (24 HR) 30 MG TAB.ER.24H PO SCH (09:50)
[2019-03-10] MEDS: Aspirin 81 MG TAB.CHEW PO SCH (09:50)
[2019-03-10] MEDS: Furosemide 40 MG/4 ML VIAL IVP SCH ×2 (09:56→21:48)
[2019-03-10] MEDS ORDERED: Perflutren Lipid Microsphere 1.3 ML in 0.9 % Sodium Chloride 8.7 ML IVP ONE (10:51)
--- NOTE | 2019-03-10 11:11 | Electrocardiograph Report ---
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
[2019-03-10] MEDS ORDERED: Diltiazem CD (24hr) 120 MG CAPSULE PO ONE (12:43)
--- NOTE | 2019-03-10 14:13 | Internal Med Progress Note ---
Hospitalist Progress Note - Encounter Date of Encounter: 03/10/19 Time of Encounter: 11:00 - Subjective Interval History: Ms. Ayon is a 73 year old female with a PMHx of Systolic CHF, CAD, DM, asthma, Afib on sotalol and xarelto, HLD, GERD and CKD III who presented to ED with a complaint of SOB and b/l LE edema from past one week. Pt also stated she has been having atrial tachcyardia for which she is scheduled for cardiac ablation in March, however lately she has been having palpitations and her HR was in 120's at times. She was admitted in the hospital and placed her on tele. Her serial troponin x 3 were negative. She denied any CP now. Pt stated her SOB and LE edema are little better now. - Exam Vitals: Temp Pulse Resp BP Pulse Ox 97.5 F L 120 16 105/74 95 03/10/19 11:19 03/10/19 11:19 03/10/19 11:19 03/10/19 11:19 03/10/19 11:19 Exam: Gen: Alert, awake, Oriented to time,place and person Chest: Diminished breath sounds B/L, mild wheezing, crackles +, No rales Heart: S1S2+ tachycardia, irregular rate and rythm, No murmurs Abd: Soft, NT, BS +, No organomegaly Ext: 2+ edema, pulses are palpable, No calf tenderness Neuro : No acute focal neuro deficits noticed Skin: No rash. - Assessment and Plan (1) Acute on chronic systolic (congestive) heart failure Current Visit: Yes Status: Acute Assessment and Plan: Her 2 D Echo showed - LVEF 40-45%, Moderate left vent systolic dyfunction Cont IV lasix 40mg BID Consulted Card for further eval cont home meds (2) Atrial tachycardia Current Visit: No Status: Acute Assessment and Plan: She does have Atrial tachycardia her HR in 120's Inc Cardizem t 240mg Cont Betapace Consulted card for further eval cont Xarelto for anti coag (3) Cardiomyopathy Current Visit: Yes Status: Acute Assessment and Plan: possible non ischemic cardiomyopathy care as above (4) CKD (chronic kidney disease), stage III Current Visit: Yes Status: Chronic Assessment and Plan: stable Cr at baseline avoid nephro toxic meds (5) Coronary artery disease Current Visit: Yes Status: Chronic Assessment and Plan: Cont home meds ASA, Statin and Imdur (6) Diabetes Current Visit: Yes Status: Chronic Assessment and Plan: on ADA diet ISS @ Medium (7) Hypertension Current Visit: Yes Status: Chronic Assessment and Plan: cont home medications stable BP now - Time Spent with Patient Total time spent is greater than 50% in coordination of care (as documented) at patient's floor/unit and/or counseling patient: Internal Medicine: Result - Labs CBC & Chem 7: 03/10/19 04:59 03/10/19 04:59 Labs: Short CBC 03/09/19 03/10/19 Range/Units 15:24 04:59 WBC 8.4 8.9 (4.3-11.1) K/mcL Hgb 10.9 L 10.5 L (11.5-15.4) g/dL Hct 33.5 L 33.3 L (35.3-44.9) % Plt Count 299 263 (140-400) K/mcL Neutrophils # 6.4 6.6 (1.6-8.9) K/mcL BMP 03/09/19 03/10/19 17:10 04:59 Sodium 135 L 139 Potassium 3.5 3.2 L Chloride 99 98 Carbon Dioxide 27 26 BUN 31 H 29 H Creatinine 1.34 H 1.49 H Glucose 77 104 Calcium 9.2 8.9 Cardiac Enzymes 03/09/19 03/09/19 03/10/19 Range/Units 15:24 21:45 04:59 Troponin I 0.03 < 0.03 0.03 (< 0.04) ng/mL - ABG Interpretation ABG results: PT/INR, D-dimer D-Dimer 1067 ng/mLFEU (0-500) H 03/09/19 15:24 - Impressions Impressions Chest X-Ray 03/09/19 15:17 IMPRESSION: No acute cardiopulmonary disease. D/ / Pepito Espinosa MD / Pepito Espinosa MD Interpreting Provider: Pepito Espinosa MD Chest CTA 03/09/19 16:01 IMPRESSION: No findings to suggest pulmonary embolus Slight increase in the mediastinal, hilar and axillary adenopathy. Right pleural effusion with dependent atelectasis Asymmetric interstitial prominence in the periphery of the right lung with thickening of the right major fissure. This could be due to the effusion, however developing lymphangitic tumor spread would be difficult to exclude. Continued follow-up recommended. Reflux of contrast into the inferior vena cava and the hepatic veins suggesting elevated right heart pressure. D/ / Сергей Caballero / Сергей Caballero Interpreting Provider: Сергей Caballero Echocardiogram 03/10/19 20:39 Impressions: LVEF 40-45%. Moderate segmental left ventricular systolic dysfunction. Indeterminate diastolic function. Normal right ventricular size with mild hypokinesis. Mild mitral regurgitation. Moderate tricuspid regurgitation. At least mild pulmonary hypertension. Ordering physician notified via [employer]. Left Ventricular Wall Motion: Rest Echo Findings The apex, apical inferior, apical anterior, mid anterior, apical septal, apical lateral and mid anterior septal menezes were hypokinetic. All other wall segments showed normal motion. Findings: Study Quality * Technically sub-optimal due to clinical status. ECG Findings * Ventricular paced rhythm with tachycardia. Left Ventricle * LVEF 40-45%. * Normal LV chamber size and wall thickness. * Moderate segmental left ventricular systolic dysfunction. * Indeterminate diastolic function. * There is no LV thrombus. * Definity echo contrast was used. * Atypical septal motion consistent with paced rhythm. Right Ventricle * Normal right ventricular size with mild hypokinesis. Left Atrium * Normal left atrial size. Right Atrium * Normal right atrial size. Interatrial Septum * Interatrial septum not well evaluated. Aortic Valve * Aortic valve not well visualized. * No aortic stenosis. * No aortic regurgitation. Mitral Valve * Normal mitral valve structure. * No mitral stenosis. * Mild mitral regurgitation. Tricuspid Valve * Normal tricuspid valve structure. * No tricuspid stenosis. * Moderate tricuspid regurgitation. * Unable to estimate RVSP due to lack of IVC visualization. * At least mild pulmonary hypertension. Pulmonic Valve * Pulmonic valve is not well visualized. * No pulmonic stenosis. * No pulmonic regurgitation. Aorta * Normally sized aortic root. Pericardium * The pericardium appears normal. IVC * The IVC is not well evaluated. Device lead * A device lead was visualized in the right atrium and right ventricle. Consult Discharge Plan - Plan Referrals: Gideon Aguilera DO [Partnered Physician] - (5) Coronary artery disease Qualifiers: Coronary Disease-Associated Artery/Lesion type: [place] artery [place] vs. 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
--- NOTE | 2019-03-10 14:28 | Cardiology Consult Note ---
Date of Encounter: 03/10/19 Time of Encounter: 14:27 Assessment and Plan (1) Acute systolic CHF (congestive heart failure) Current Visit: Yes Status: Acute Acute systolic CHF. EF 40-45% moderate segmental systolic dysfunction. Previous Echo 08/2018 EF 50-55%. BnP 406. CT with right pleural effusion. No PE. Agree with IV lasix. Ischemic work-up with [facility] recommended,. R,B,A reviewed with patient. She agrees to proceed. Last [facility] 2014 showed patent LAD and RCA stents. There was a 50 % stenosis in the mid circumflex artery. Plan for [facility] tomorrow. (2) PAF (paroxysmal atrial fibrillation) Current Visit: No Status: Chronic H/oPAF. Currently with atrial tachycardia, paced rhythm. Planned for ablation out-pt. Continue sotalol for afib. Hold xarelto for [facility]. (3) Atrial tachycardia Current Visit: No Status: Acute H/o persistent atrial tachycardia. On sotalol and cardizem. Cardizem increased during hospital stay. Avg HR over last 24 hours 115 bpm. Out-pt ablation ordered. Unable to titrate cardidem with b/p. I will discuss further with Dr. Pan. (4) Coronary artery disease Current Visit: Yes Status: Chronic H/o CAD s/p PCI to the LAD and RCA in 2003. Last [facility] 2014 showed patent stents. Lcx with moderate disease. [facility] planned for hospital stay. On Bb, Asa, statin. Qualifiers: Coronary Disease-Associated Artery/Lesion type: [place] artery [place] vs. transplanted heart: [place] heart Associated angina: without angina Qualified Code(s): I25.10 - Atherosclerotic heart disease of [place] coronary artery without angina pectoris Discussion w patient/family: The assessment and plan as outlined above was discussed with the patient and/or family members who expressed understanding and agreement. All questions were answered. Thank you for involving us in the care of your patient. Please call with any questions. History of Present Illness Consult date: 03/10/19 Requesting physician: Bina Lemons Consult reason: tachycardia Chief complaint: Palpitations, chest pain, TY History of present illness: Ms. Ayon is a 73 year old female with past medical history of atrial fibrillation on xarelto, atrial tachycardia, PPM, CAD s/p PCI 2003, HTN who pre sents with c/o palpitations, chest pain, and dyspnea on exertions. Palpitations and TY on-going since September of this year. C/o chest pressure last Sunday . C/o fatigue. Cardiology consulted for atrial tachycardia. TTE also shows new cardiomyopathy with EF 40-45%. She is sheduled for ablation with [facility] in March. 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 R TKR 1989. RIGHT ANKLE LYMPHOMA SURGERY 1992. MD WITH PCI x2 stents 2001. RIGHT SHOULDER repair 1999. Left Shoulder total replacement 2005. colonoscopy - Social History Smoking Status: Never smoker Smokeless Tobacco Status: No Alcohol use: none Drug use: none - Family History Mother Adopted: No Family Member Ethnicity: Non- Living Status: Hx Family Cardiac Disorders: Yes (CHF) Hx Family Respiratory Disorders: Yes Hx Family Cancer: No Hx Family GI Disorders: No Hx Family Endocrine Disorder: Yes (diabetic) Hx Family Neuromuscular Disorders: No Hx Family Neurologic Disorders: No Hx Family HEENT Disorders: No Hx Family Autoimmune Disorders: No Father Adopted: No Living Status: Hx Family Cardiac Disorders: Yes Hx Family Respiratory Disorders: Yes Hx Family Cancer: No Hx Family GI Disorders: No Hx Family Endocrine Disorder: Yes (Diabetic) Hx Family Neuromuscular Disorders: No Hx Family Neurologic Disorders: No Hx Family HEENT Disorders: No Hx Family Autoimmune Disorders: No Brother Living Status: Hx Family Cardiac Disorders: Yes Hx Family Neurologic Disorders: Yes (CVA) Medications and Allergies Acyclovir [Zovirax] 800 mg PO DAILY 04/20/15 [History] Ascorbate Calcium/Bioflavonoid [Marylin-C 1,000 mg Tablet] 1 tab PO DAILY 09/19/16 [History] Aspirin 81 mg PO DAILY 09/19/16 [History] Fenofibrate Nanocrystallized [Tricor] 145 mg PO DAILY 09/19/16 [History] Gabapentin [Neurontin] 300 mg PO DAILY 09/19/16 [History] Isosorbide MONOnitrate (24 HR) [Imdur] 30 mg PO DAILY 09/19/16 [History] Montelukast [Singulair] 10 mg PO DAILY 09/19/16 [History] Omeprazole [PriLOSEC] 40 mg PO DAILY 09/19/16 [History] Rivaroxaban [Xarelto] 20 mg PO DAILY 09/19/16 [History] Triamterene/HCTZ 37.5/25mg [Dyazide] 1 tab PO DAILY 09/19/16 [History] Dulaglutide [Trulicity] 0.75 mg SQ MO 01/17/17 [History] Hydrocodone/Acetaminophen [Shirley 10-325 Tablet] 1 tab PO Q6H PRN 10/05/18 [History] Insulin Glargine [Lantus] 40 unit SQ BID 10/05/18 [History] Metformin HCl [Fortamet] 500 mg PO BID 10/05/18 [History] Sertraline [Zoloft] 150 mg PO HS 10/05/18 [History] Simvastatin [Zocor] 40 mg PO DAILY 10/05/18 [History] Fluticasone Propionate Nasal [Flonase] 1 spray NS DAILY PRN 10/22/18 [History] Furosemide [Lasix] 20 mg PO DAILY PRN 11/28/18 [History] raNITIdine HCl [Zantac] 150 mg PO BID PRN 11/28/18 [History] Sotalol HCl [Betapace] 160 mg PO BID 02/02/19 [History] Diltiazem CD (24hr) [Cardizem CD] 120 mg PO DAILY #30 cap.er.24h 02/05/19 [Rx] Allergy/AdvReac Type Severity Reaction Status Date / Time pioglitazone AdvReac See Verified 11/28/18 07:31 Comments All Systems Review: The remainder of the systems were reviewed and are negative Physical Examination Vital Signs, Last 4 Hours Temp Pulse Resp BP Pulse Ox 03/10/19 11:19 97.5 F L 120 16 105/74 95 General: Conversant, No Apparent Distress HEENT: Atraumatic, Normocephaly, Mucus Membranes Moist Neck: No JVD, Normal carotid pulses Cardiac: Reg Rate and Rhythm, Normal S1 and S2, No Murmur Lungs: Normal Breath Sounds, No Wheeze, Rales, Rhonchi Neuro: Alert and responsive, No focal deficits noted Abdomen: Soft, Non-Tender Skin: No rashes noted on visualized skin Musculoskeletal: No Chest Wall Tenderness Extremities: No Clubbing, No Cyanosis, No Edema, Normal Pulses Results 03/10/19 04:59 03/10/19 04:59 Lab Results 03/09/19 03/09/19 03/09/19 15:24 15:24 15:24 WBC 8.4 Hgb 10.9 L Hct 33.5 L Plt Count 299 D-Dimer 1067 H Sodium Potassium Chloride Carbon Dioxide BUN Creatinine Glucose Calcium Magnesium Troponin I 0.03 B-Natriuretic Peptide 03/09/19 03/09/19 03/09/19 15:24 17:10 21:45 WBC Hgb Hct Plt Count D-Dimer Sodium 135 L Potassium 3.5 Chloride 99 Carbon Dioxide 27 BUN 31 H Creatinine 1.34 H Glucose 77 Calcium 9.2 Magnesium Troponin I < 0.03 B-Natriuretic Peptide 406 H 03/10/19 03/10/19 04:59 04:59 WBC 8.9 Hgb 10.5 L Hct 33.3 L Plt Count 263 D-Dimer Sodium 139 Potassium 3.2 L Chloride 98 Carbon Dioxide 26 BUN 29 H Creatinine 1.49 H Glucose 104 Calcium 8.9 Magnesium 1.9 Troponin I 0.03 B-Natriuretic Peptide - Imaging and Cardiology Echo: report reviewed - EKG Interpretation EKG results cardiology: personally reviewed Consult Discharge Plan - Plan Referrals: Gideon Aguilera DO [Partnered Physician] -
[2019-03-10] MEDS: Ondansetron 4 MG/2 ML VIAL IVP PRN (22:35)
[2019-03-11 05:39] LABS: Hematocrit 31.2 % (35.3-44.9); Mean Corpuscular HGB Conc 32.1 g/dL (31.6-35.5); Mean Corpuscular Hemoglobin 28.7 pg (28.0-33.3); Mean Corpuscular Volume 89.7 fL (83.0-100.0); Mean Platelet Volume 10.4 fL (9.4-12.4); Platelet Count 245 K/mcL (140-400); Red Blood Count 3.48 M/mcL (3.82-4.97); White Blood Count 7.6 K/mcL (4.3-11.1)
[2019-03-11 05:58] LABS: Calcium 9.1 mg/dL (8.6-10.3); Magnesium 1.9 mg/dL (1.6-2.6)
[2019-03-11] MEDS ORDERED: Adenosine 90 MG/30 ML MLS IV ONE (08:01)
[2019-03-11] MEDS: Aspirin 81 MG TAB.CHEW PO SCH (09:33)
[2019-03-11] MEDS: Furosemide 40 MG/4 ML VIAL IVP SCH (09:33)
[2019-03-11] MEDS: Isosorbide MONOnitrate (24 HR) 30 MG TAB.ER.24H PO SCH (09:33)
[2019-03-11] MEDS: Diltiazem CD (24hr) 240 MG CAPSULE PO SCH (09:33)
[2019-03-11] MEDS: Gabapentin 300 MG CAPSULE PO SCH (09:33)
[2019-03-11] MEDS: Insulin LISPRO 300 UNITS/3 ML VIAL SQ SCH ×4 (09:34→21:40)
[2019-03-11] MEDS ORDERED: ISOVUE-370 200 ML INFUS..BTL ONE (10:52)
[2019-03-11] MEDS ORDERED: *HR* Heparin 10,000 UNIT/10 ML VIAL ONE (10:52)
[2019-03-11] MEDS ORDERED: Nitroglycerin 1,000 MCG/10 ML VIAL IV ONE (10:52)
[2019-03-11] MEDS ORDERED: 0.9 % Sodium Chloride 1,000 ML ONE ×2 (10:52→10:59)
[2019-03-11] MEDS ORDERED: Heparin 1,000 UNITS/500 mL 500 ML ONE (10:52)
--- NOTE | 2019-03-11 12:29 | Pre-Sedation Evaluation ---
Pre-sedation evaluation - Pre-sedation checklist Date of procedure: 03/11/19 Procedure: Cath Recent Vitals: Last Vital Signs Temp 97.5 F L 03/11/19 11:41 Pulse 114 03/11/19 11:41 Resp 16 03/11/19 11:41 BP 87/59 03/11/19 11:41 Pulse Ox 94 03/11/19 11:41 H&P (including ROS) documented in medical record: Yes Previous reaction to sedatives/anesthetics: No Dietary Status: NPO after Midnight Dentition: No loose teeth or bridges ASA Classification *see protocol: CLASS II-Mild systemic disease Cardiac Registry (Cardio Only) - Functional Capacity Functional Capacity: >=4 METS without symptoms - Clincal Frailty Scale Clinical Frailty Scale: Managing Well
[2019-03-11] MEDS ORDERED: *HR* FentaNYL (PF) 100 MCG/2 ML VIAL ONE (12:30)
[2019-03-11] MEDS ORDERED: *HR* Midazolam HCl 2 MG/2 ML VIAL ONE (12:30)
[2019-03-11] MEDS ORDERED: Potassium Chloride 40 MEQ, Lidocaine 1% 2 ML in D5% in Water 500 ML IVPB ONE (12:34)
[2019-03-11] MEDS ORDERED: Potassium Chloride Elixir 20 MEQ/15 ML UDC PO ONE (12:34)
--- NOTE | 2019-03-11 13:06 | Internal Med Progress Note ---
Hospitalist Progress Note - Encounter Date of Encounter: 03/11/19 Time of Encounter: 11:30 - Subjective Interval History: Pt was seen and examined at bed side. Pt stated her SOB and b/l LE edema much better today. She denied any more CP / Chest pressure. - Exam Vitals: Temp Pulse Resp BP Pulse Ox 97.5 F L 114 16 87/59 94 03/11/19 11:41 03/11/19 11:41 03/11/19 11:41 03/11/19 11:41 03/11/19 11:41 Exam: Gen: Alert, awake, Oriented to time,place and person Chest: Diminished breath sounds B/L, mild wheezing, no crackles, No rales Heart: S1S2+ tachycardia, irregular rate and rythm, No murmurs Abd: Soft, NT, BS +, No organomegaly Ext: improving edema, pulses are palpable, No calf tenderness Neuro : No acute focal neuro deficits noticed Skin: No rash. - Assessment and Plan (1) Acute on chronic systolic (congestive) heart failure Current Visit: Yes Status: Acute Assessment and Plan: Her 2 D Echo showed - LVEF 40-45%, Moderate left vent systolic dysfunction Her symptoms improving Scheduled for [facility] today as part of ischemic work up for her systolic CHF exacerbation appreciate card recommendations Held Lasix today since she is going for [facility] With her CKD-3, she may need gentle hydration tonight. (2) Atrial tachycardia Current Visit: No Status: Acute Assessment and Plan: She does have Atrial tachycardia her HR in 110's Cont Cardizem t 240mg Cont Betapace Appreciate Card recommendations cont Xarelto for anti coag (3) Cardiomyopathy Current Visit: Yes Status: Acute Assessment and Plan: possible non ischemic cardiomyopathy care as above (4) CKD (chronic kidney disease), stage III Current Visit: Yes Status: Chronic Assessment and Plan: stable Cr at baseline avoid nephro toxic meds Since pt is going for [facility].. started her on Acetylcystiene Held Lasix for now (5) Coronary artery disease Current Visit: Yes Status: Chronic Assessment and Plan: Cont home meds ASA, Statin and Imdur (6) Diabetes Current Visit: Yes Status: Chronic Assessment and Plan: on ADA diet ISS @ Medium (7) Hypertension Current Visit: Yes Status: Chronic Assessment and Plan: cont home medications stable BP now - Time Spent with Patient Total time spent is greater than 50% in coordination of care (as documented) at patient's floor/unit and/or counseling patient: Internal Medicine: Result - Labs CBC & Chem 7: 03/11/19 04:29 03/11/19 04:29 Labs: Short CBC 03/11/19 Range/Units 04:29 WBC 7.6 (4.3-11.1) K/mcL Hgb 10.0 L (11.5-15.4) g/dL Hct 31.2 L (35.3-44.9) % Plt Count 245 (140-400) K/mcL BMP 03/11/19 04:29 Sodium 140 Potassium 3.0 L Chloride 97 L Carbon Dioxide 33 H BUN 30 H Creatinine 1.41 H Glucose 107 H Calcium 9.1 - ABG Interpretation ABG results: PT/INR, D-dimer D-Dimer 1067 ng/mLFEU (0-500) H 03/09/19 15:24 Consult Discharge Plan - Plan Referrals: Gideon Aguilera DO [Partnered Physician] - (Appt has been requested. ) ___ (5) Coronary artery disease Qualifiers: Coronary Disease-Associated Artery/Lesion type: [place] artery [place] vs. 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
--- NOTE | 2019-03-11 15:36 | Event Note ---
Date of Encounter: 03/11/19 Time of Encounter: 15:00 - Cardiology Event Note S/p LHC. Moderate nonobstructive disease seen in Lcx artery. No intervention. HR improved during procedure. Potassium given for replacement. No further recommendations from cardiology standpoint. Pt to keep appt for ablation with Dr. Fry
--- NOTE | 2019-03-11 15:50 | Invasive Diagnostic Lab Proc ---
Name: Gypsy Ayon Date of Study: 03/11/2019 Date: 1945 Ht: 65.0in Medical Record#: [id number] Age: 73 Wt: 207.23lb Gender: Female BSA: 2.01 Order #: [id number] BMI: 34.53 Physicians Procedure Physician: uJan Diego Covarrubias MD Referring MD: Referring MD: Staff Name Position Time In Meet Rowland RN Monitor 12:26 PM Yuliana Miguel RT (R) Scrub 12:26 PM Annie Banks RN Pulp Grinder And Blender 12:26 PM Ted Regan RN Nurse 01:49 PM Indications Indication Unstable Angina Procedures Performed Procedure CORONARY ARTERY ANGIO S&I IV Doppler BLD Flow 1st Vessel Pre-Procedure Checklist Informed consent is complete signed and on chart. H&P is on chart. ID band is on and ID verified with patient. Patient NPO for procedure The procedure was described for the patient and questions were answered. Blood Pressure: 101/63 ECG is on chart. Plan of Care Patient will tolerate the procedure without complications. Adequate level of comfort will be maintained. Hemodynamics will remain stable Patient will recover from procedure without complications. Respiratory function will be maintained. Cardiac rhythm will remain stable. Patient temperature will be maintained. Patient and/or family have verbalized understanding of the procedure. Patient Education Chief Complaint/Reason for Test: Cardiac Cath Developmental Category: Geriatric (65+ years) Developmentally Appropriate for Age: Yes Learning Barriers: None Education Needs: Procedure Education Method: Verbal Information Taught: Cardiac Cath Educational Evaluation: Able to repeat information Intravenous Access Time IV Size Location DC'd Fluid/Drip Rate Units RN 20g 1 /" Patent On Arrival Rt Hand 0.9NaCl 50 ml/hr Ted Regan RN Allergies No Known Allergies pioglitazone NKA Vital Signs Time BP (mmHg) HR (bpm) O2 Sat. RR (bpm) LOC 10:57 AM 101 / 63 114 95 % 15 5 = Fully awake and oriented or at pre-proc level 12:29 PM / % 5 = Fully awake and oriented or at pre-proc level 12:29 PM / % 5 = Fully awake and oriented or at pre-proc level 12:44 PM / % 4 = Oriented but drowsy 12:59 PM / % 4 = Oriented but drowsy 01:14 PM / % 4 = Oriented but drowsy 01:29 PM / % 4 = Oriented but drowsy 12:56 PM 99 / 59 60 94 % 14 01:01 PM 104 / 64 71 94 % 13 01:06 PM 100 / 52 61 91 % 25 01:11 PM 102 / 64 60 92 % 22 01:16 PM 99 / 59 60 92 % 24 01:21 PM 102 / 62 85 92 % 34 01:26 PM 102 / 67 62 92 % 4 01:31 PM 97 / 64 145 91 % 5 01:36 PM 99 / 67 300 95 % 11 01:41 PM 97 / 67 60 87 % 12:26 PM 93 / 53 84 94 % 6 12:31 PM 100 / 66 63 91 % 22 12:37 PM 208 / 107 60 93 % 9 12:38 PM 97 / 58 60 92 % 19 12:41 PM 90 / 58 60 92 % 17 12:46 PM 97 / 58 59 94 % 12:51 PM 99 / 62 63 93 % 9 01:56 PM 94 / 60 62 95 % 16 5 = Fully awake and oriented or at pre-proc level 02:05 PM 89 / 66 64 96 % 16 5 = Fully awake and oriented or at pre-proc level 02:21 PM 96 / 65 64 90 % 15 5 = Fully awake and oriented or at pre-proc level 02:30 PM 97 / 69 64 90 % 16 5 = Fully awake and oriented or at pre-proc level 02:45 PM 101 / 66 60 98 % 16 5 = Fully awake and oriented or at pre-proc level 03:00 PM 96 / 65 60 99 % 16 5 = Fully awake and oriented or at pre-proc level 03:15 PM 97 / 67 60 98 % 16 5 = Fully awake and oriented or at pre-proc level Procedural Medications Time Medication Dose Units Method Given By 12:29 PM Oxygen 2 L/min nasal cannula Annie Banks RN 12:32 PM Versed 1 mg Intravenous Annie Banks RN 12:32 PM Fentanyl 50 mcg Intravenous Annie Banks RN 12:51 PM Lidocaine 2% 19 ml Subcutaneous Juan Diego Covarrubias MD 01:02 PM Potassium Chloride 40 meQ Orally Annie Banks RN 01:03 PM Potassium Chloride 40 meQ Intravenous Annie Banks RN 01:10 PM Heparin 4500 units Intravenous Annie Banks RN 01:24 PM 90mg Adenosine in 90 ml 0.9 NS 789 ml/hr Intravenous Annie Banks RN 01:27 PM Nitroglycerin 100 mcg Intracoronary Juan Diego Covarrubias MD ASA Classification: CLASS II- Mild systemic disease (i.e. well-controlled diabetes, hypertension, asthma, cigarette smoking) Adrian Score Preprocedure Postprocedure Activity 2- Moves 4 extremities sustained head lift Activity 2- Moves 4 extremities sustained head lift Circulation 2- SBP +/= 20 points of pre-anesthetic level Circulation 2- SBP +/= 20 points of pre-anesthetic level Consciousness 2- Awake and alert oriented x 3 Consciousness 2- Awake and alert oriented x 3 O2 Saturation 2- Able to maintain O2 satruation of 92% on room air O2 Saturation 2- Able to maintain O2 satruation of 92% on room air Respiratory 2- Able to deep breathe and cough well Respiratory 2- Able to deep breathe and cough well Total Score 10 Total Score 10 Contrast Agent: Isovue Diagnostic Contrast: 100 ml Total Contrast: 100 ml Fluoro Dose: 59 mGy Activated Clotting Time Time Seconds to Clot 01:34 PM 239 02:50 PM 180 Procedure Log Time Note Enter By 10:58 AM CathStat 12:25 PM Vitals capture started with the following parameters, Patient=Adult, Interval=5 min, Initial Hwgabyoo=506 mmHg, Deflation Rate=5 mmHg, Cuff placed on Left Arm 12:26 PM Pt arrived to golf course laborer 1 at 12:26 cedwards 12:26 PM HR=84 bpm, NIBP=93/53 mmhg, SpO2=94 %, Resp=6 B/min 12:26 PM Meet Rowland RN Position: Monitor Time in: 12: cedwards 12: PM Yuliana Miguel RT (R) Position: Scrub Time in: 12: cedwards 12:26 PM Annie Banks RN Position: Pulp Grinder And Blender Time in: 12: cedwards 12:26 PM Patient charges- Angio tray pack, Navilyst 3mm J, Pulse Oximetry and ACIST tubing and transducer cedwards 12:26 PM IV Supplies used: J loop Angio Cath. cedwards 12:26 PM Physician arrived 12: cedwards 12:26 PM Olivier completed cedwards 12:26 PM Sign in performed according to hospital policy. Informed consent was obtained. cedwards 12:27 PM Procedure start : cedwards 12:28 PM Hair removed from procedure site in procedure lab using clippers. Bilateral groin prepped with Chloraprep by Annie Banks RN, then patient was draped. Skin intact. cedwards 12:28 PM Recorded ECG: HR=71 Condition=Condition 1 12:28 PM CathStat 12:29 PM Time: 12:29 Oxygen on at 2 L/min per nasal cannula by Annie Banks RN cedwards 12: PM Time: 12:29 Patient comfortable and pain free: Yes cedwards 12:29 PM Time: 12:29LOC: 5 = Fully awake and oriented or at pre-proc level cedwards 12:31 PM HR=63 bpm, NDPX=794/66 mmhg, SpO2=91.0 %, Resp=22 B/min 12:32 PM Time: 12:32 Versed 1 mg Intravenous Given by Annie Banks RN cedwards 12:32 PM Time: 12:32 Fentanyl 50 mcg Intravenous Given by Annie Banks RN cedwards 12:36 PM Verbal potassium orders received cedwards 12:37 PM HR=60 bpm, KRIA=553/107 mmhg, SpO2=93.0 %, Resp=9 B/min 12:38 PM NIBP STAT measurement started. 12:38 PM HR=60 bpm, NIBP=97/58 mmhg, SpO2=92 %, Resp=19 B/min 12:40 PM Pressure channel 2 zeroed. 12:41 PM HR=60 bpm, NIBP=90/58 mmhg, SpO2=92.0 %, Resp=17 B/min 12:44 PM Time: 12:29LOC: 5 = Fully awake and oriented or at pre-proc level cedwards 12:44 PM Time: 12:29 Patient comfortable and pain free: Yes cedwards 12:46 PM HR=59 bpm, NIBP=97/58 mmhg, SpO2=94.0 % 12:50 PM ASA Class CLASS II- Mild systemic disease (i.e. well-controlled diabetes, hypertension, asthma, cigarette smoking) cedwards 12:51 PM Clinical Presentation: Unstable angina cedwards 12:51 PM Time out was performed according to hospital policy. Conscious sedation and anesthesia was achieved (see medication log with in this report above) cedwards 12:51 PM HR=63 bpm, NIBP=99/62 mmhg, SpO2=93 %, Resp=9 B/min 12:52 PM Time: 12:51 19 ml Lidocaine 2% to right groin Subcutaneous Given by Juan Diego Covarrubias MD cedwards 12:52 PM Micro-Introducer Kit utilized for sheath placement cedwards 12:53 PM Access obtained by percutaneous puncture. 6Fr 10cm Terumo [place] sheath placed in right Femoral artery. [id number] cedwards 12:54 PM 0.035 145cm Navilyst 3mmJ wire [id number] cedwards 12:54 PM 5Fr FR 4 catheter inserted over the wire [facility] cedwards 12:55 PM Recorded Pressure: Ao, HR=61, Condition=Condition 1 (Aorta) Ao 84/45/61 12:55 PM RCA angiography performed in multiple views. cedwards 12:56 PM HR=60 bpm, NIBP=99/59 mmhg, SpO2=94.0 %, Resp=14 B/min 12:57 PM Catheter removed cedwards 12:57 PM 5Fr FL 4 catheter inserted over the wire [facility] cedwards 12:57 PM LCA angiography performed in multiple views. cedwards 12:58 PM Recorded Pressure: Ao, HR=64, Condition=Condition 1 (Aorta) Ao 52/28/38 12:59 PM Time: 12:44 Patient comfortable and pain free: Yes cedwards 12:59 PM Time: 12:44LOC: 4 = Oriented but drowsy cedwards 01:01 PM HR=71 bpm, VCTB=788/64 mmhg, SpO2=94.0 %, Resp=13 B/min 01:02 PM Catheter removed cedwards 01:03 PM Time: 13:02 Potassium Chloride 40 meQ Orally Given by Annie Banks RN cedwards 01:04 PM Time: 13:03 Potassium Chloride 40 meQ Intravenous Given by Annie Banks RN cedwards 01:06 PM HR=61 bpm, WPJC=091/52 mmhg, SpO2=91 %, Resp=25 B/min 01:06 PM [ Start FFR sample ] 01:10 PM Lesion found in Proximal Circumflex. Pre Stenosis: 60 Pre DARSHANA Flow: cedwards 01:11 PM Time: 13:10 Heparin 4500 units Intravenous Given by Annie Banks RN cedwards 01:11 PM HR=60 bpm, RUED=152/64 mmhg, SpO2=92.0 %, Resp=22 B/min 01:12 PM 6Fr XB3.5 Cordis guide catheter was used to cannulate the PCI vessel successfully. reused? No cedwards 01:13 PM .014 [employer] [place] 190cm guide wire across target lesion- successful. reused? No cedwards 01:14 PM Asist FFR Catheter advanced to target lesion. cedwards 01:14 PM Time: 12:59LOC: 4 = Oriented but drowsy cedwards 01:14 PM Time: 12:59 Patient comfortable and pain free: Yes cedwards 01:14 PM Recorded Pressure: Ao, PV1, HR=61, Condition=Condition 1 (Aorta) Ao 100/62/78, (Portal Vein) PV1 -90/-90/-90 01:16 PM HR=60 bpm, NIBP=99/59 mmhg, SpO2=92 %, Resp=24 B/min 01:16 PM Coronary Dominance: Left cedwards 01:21 PM HR=85 bpm, JXMU=497/62 mmhg, SpO2=92 %, Resp=34 B/min 01:21 PM [ Start FFR sample ] 01:23 PM Pressure channel 4 equalized to channel 2. 01:24 PM Time: 13:24 90mg Adenosine in 90 ml 0.9 NS 789 ml/hr Intravenous Given by Annie Banks RN [place] pump cedwards 01:26 PM FFR: Value=0.92, Condition=Condition 1, Device=VOLCANO PRIME WIRE 01:26 PM Recorded Pressure: Ao, PV1, FFR=0.92, HR=62, Condition=Condition 1 (Aorta) Ao 103/60/77, (Portal Vein) PV1 99/99/75 01:26 PM HR=62 bpm, SDQX=682/67 mmhg, SpO2=92 %, Resp=4 B/min 01:27 PM FFR Measurement: 0.92 cedwards 01:27 PM Adenosine stopped cedwards 01:27 PM Time: 13:27 Nitroglycerin 100 mcg Intracoronary Given by Juan Diego Covarrubias MD cedwards 01:28 PM FFR wire removed cedwards 01:29 PM Guide wire removed intact. cedwards :29 PM Time: 13:14 Patient comfortable and pain free: Yes cedwards :29 PM Time: 13:14LOC: 4 = Oriented but drowsy cedwards 01:30 PM Guide catheter removed intact. cedwards 01:31 PM RX=653 bpm, NIBP=97/64 mmhg, SpO2=91.0 %, Resp=5 B/min 01:32 PM Procedure completed at 13:32 03/11/2019 cedwards 01:33 PM Did you address DARSHANA flow and Dominance? YesCoronary Dominance: Left cedwards 01:33 PM Sign out completed: Radiation Dose 462.37 mGy, 58.8 Gy/cm2 Fluoro Time: 8.3 Isovue 370 - 200ml contrast 100 ml given by Juan Diego Covarrubias MD. Complications: None. The patient was discharged out of the medical laboratory technologist in stable condition. Sedation minutes 50. Cardiac Rehab Consult needed: No. Confirmed administered medications: Yes cedwards 01:34 PM Isovue 370 - 200ml,1 Bottle(s) used. cedwards 01:34 PM At 13:34 the ACT was 239 seconds. cedwards 01:36 PM BN=601 bpm, NIBP=99/67 mmhg, SpO2=95 %, Resp=11 B/min 01:39 PM Isovue 370 - 200ml,1 Bottle(s) used. cedwards 01:39 PM Sheath left in place to be pulled on floor/holding areaV+Pad cedwards 01:39 PM Estimated Blood Loss: minimal cedwards 01:39 PM Post ECG NSR cedwards 01:39 PM Post Blood Pressure 99/67 cedwards 01:40 PM Information taught Cardiac Cath cedwards 01:40 PM Education needs Procedure, Plan of Care, and Disease Process cedwards 01:40 PM Learning barriers :None cedwards 01:40 PM Education Methods Verbal cedwards 01:40 PM Education evaluation Able to repeat information cedwards 01:41 PM Site status No bleeding/ No Hematoma - Rt Groin as reported by Yuliana Miguel RT (R) at 13:40 cedwards 01:41 PM HR=60 bpm, NIBP=97/67 mmhg, SpO2=87 % 01:41 PM Opsite applied cedwards 01:41 PM Plavix, Effient or Brilinta given No cedwards 01:41 PM Family placed in consult room. cedwards 01:41 PM Complications: None cedwards 01:46 PM Time: 13:29LOC: 4 = Oriented but drowsy cedwards 01:46 PM Time: 13:29 Patient comfortable and pain free: Yes cedwards 01:47 PM Report given to Barbie GARIBAY Pt taken to Holding room Room #1. 13:47 cedwards 01:48 PM Lesion found in Mid RCA. Pre Stenosis: 25 Pre DARSHANA Flow: cedwards 01:48 PM Lesion found in Distal LAD. Pre Stenosis: 60 Pre DARSHANA Flow: cedwards 01:48 PM Lesion found in Mid Circumflex. Pre Stenosis: 60 Pre DARSHANA Flow: cedwards 01:49 PM Patient out of room: 13:49 tsites 01:49 PM Ted Regan RN Position: Nurse Time in: 13:49 cedwards 02:58 PM At 14:50 the ACT was 180 seconds. kmavis 03:21 PM Arterial sheath pulled using manual compression and V+ Pad for 15 minutes by Yuliana Miguel RT (R) kmavis 03:40 PM Report given to Emma GARIBAY Pt taken to 3B. 15:37 kmavis 03:43 PM Patient taken to 3b at this time. kmavis 03:43 PM Site status No bleeding/ No Hematoma - Rt Groin as reported by Yuliana Miguel RT (R) at 15:43 kmavis 03:43 PM Opsite applied kmavis Complications Complication None None Hemodynamics Pressures Site Systolic/A Wave Diastolic/V Wave Mean AO 84 45 61 AO 52 28 38 AO 100 62 78 PV1 -90 -90 -90 AO 103 60 77 PV1 99 99 75 Post Procedure Information Blood Pressure: 99/67 mmHg Rhythm: NSR Post procedural instructions were given Closure Device Time Device Success/Fail 03/11/2019 1:47:00 PM Manual Compression Site Checks Time Location Status Staff Sheath In? Note 01:40 PM Rt Groin No bleeding/ No Hematoma Yuliana Miguel RT (R) No 02:00 PM Rt Groin No bleeding/ No Hematoma Sites, Barbie RT (R) Yes 02:05 PM Rt Groin No bleeding/ No Hematoma Sites, Barbie RT (R) Yes 02:21 PM Rt Groin No bleeding/ No Hematoma Sites, Barbie RT (R) Yes 02:30 PM Rt Groin No bleeding/ No Hematoma Erin Perez RN Yes 02:45 PM Rt Groin No bleeding/ No Hematoma Yuliana Miguel RT (R) Yes 03:00 PM Rt Groin No bleeding/ No Hematoma Yuliana Miguel RT (R) 03:43 PM Rt Groin No bleeding/ No Hematoma Yuliana Miguel RT (R) Pulses Time Site Pre-Procedure Post-Procedure Note 03/11/2019 10:57:00 AM Bilateral radial 2+ 03/11/2019 10:57:00 AM Bilateral DP & PT 2+ 03/11/2019 1:55:00 PM Bilateral DP & PT 2+ 03/11/2019 2:05:00 PM Bilateral DP & PT 2+ 03/11/2019 2:21:00 PM Bilateral DP & PT 2+ Updated by Erin Perez RN on 03/11/2019 3:44:12 PM electronically signed on 03/11/2019 3:45:00 PM with status of Final
[2019-03-11] MEDS: *HR* Acetylcysteine 20% 600 MG/3 ML ORAL SYRINGE PO SCH ×2 (16:32→21:40)
[2019-03-11] MEDS ORDERED: *HR* Rivaroxaban 15 MG TABLET PO SCH (17:00)
[2019-03-11] MEDS: Ondansetron 4 MG/2 ML VIAL IVP PRN (21:39)
[2019-03-11] MEDS ORDERED: Acetaminophen 325 MG TABLET PO PRN (21:59)
[2019-03-12 04:50] LABS: Hematocrit 34.8 % (35.3-44.9); Hemoglobin 10.8 g/dL (11.5-15.4); Mean Corpuscular Volume 93.5 fL (83.0-100.0); Mean Platelet Volume 10.2 fL (9.4-12.4); Platelet Count 350 K/mcL (140-400); Red Blood Count 3.72 M/mcL (3.82-4.97); Red Cell Distribution Width 16.4 % (11.5-14.5); White Blood Count 12.4 K/mcL (4.3-11.1)
[2019-03-12] MEDS ORDERED: Ondansetron 4 MG/2 ML VIAL IVP ONE (04:52)
[2019-03-12 05:09] LABS: Calcium 9.1 mg/dL (8.6-10.3); Potassium 4.5 mEq/L (3.5-5.1)
--- NOTE | 2019-03-12 06:56 | Event Note ---
Date of Encounter: 03/12/19 Time of Encounter: 06:53 Notified by nurse of patient heart cath site being hard and bruised. Assessed patient at bedside, site bruised, swollen, and tender. Vitals stable. Ordered stat ultrasound of right lower extremity to rule out pseudo aneurysm. Called internet marketing consultant Cardiology Dr Pereyra and updated on situation and requested patient be seen by Cardiology this morning. Instructed nurse to hold pressure at site and notify of any changes.
[2019-03-12] MEDS: Gabapentin 300 MG CAPSULE PO SCH (08:13)
[2019-03-12] MEDS: Isosorbide MONOnitrate (24 HR) 30 MG TAB.ER.24H PO SCH (08:14)
[2019-03-12] MEDS: Diltiazem CD (24hr) 240 MG CAPSULE PO SCH (08:14)
[2019-03-12] MEDS: Aspirin 81 MG TAB.CHEW PO SCH (08:14)
[2019-03-12] MEDS: Insulin LISPRO 300 UNITS/3 ML VIAL SQ SCH ×4 (08:14→20:44)
[2019-03-12] MEDS: Ondansetron 4 MG/2 ML VIAL IVP PRN ×2 (08:24→22:46)
--- NOTE | 2019-03-12 10:57 | Cardiology Progress Note ---
Date of Encounter: 03/12/19 Time of Encounter: 10:00 Assessment and Plan (1) Acute systolic CHF (congestive heart failure) Current Visit: Yes Status: Acute Per cardiology: -Acute systolic CHF. EF 40-45% moderate segmental systolic dysfunction. Previous Echo 08/2018 EF 50-55%. -BnP 406. CT with right pleural effusion. No PE. Had been diuresed with IV l asix. Currently net negative ~1.6L. Near euvolemic on exam. -On BB. Not on jacque/arb due to CKD. -S/p LHC yesterday with prelim report reviewed with moderate, non-obstructive CAD. -Was on 20mg PRN lasix at home. -Recommend 20mg of daily lasix po prior to discharge if renal function will tolerate. -CHF education reviewed with patient. -Strict i/os, fluid restriction, daily weights. -Consider addition of jacque/arb prior to discharge if renal function and BP will tolerate. (2) Pseudoaneurysm following procedure Current Visit: Yes Status: Acute Per cardiology: -Right groin pseudoaneurysm noted post LHC. Right groin hard to palpation and moderate ecchymosis noted. -Hemoglobin stable, BP stable. -Vascular surgery has been consulted. -Appreciate vascular surgery recommendations. (3) Coronary artery disease Current Visit: Yes Status: Chronic Per cardiology: -H/o CAD s/p PCI to the LAD and RCA in 2003. Last LHC 2014 showed patent stents. Lcx with moderate disease. -Repeat LHC this admission as above with moderate, non-obstructive CAD. - On Bb, Asa, statin. Qualifiers: Coronary Disease-Associated Artery/Lesion type: [place] artery [place] vs. transplanted heart: [place] heart Associated angina: without angina Qualified Code(s): I25.10 - Atherosclerotic heart disease of [place] coronary artery without angina pectoris (4) PAF (paroxysmal atrial fibrillation) Current Visit: No Status: Chronic Per cardiology: -H/oPAF. Currently with atrial tachycardia, paced rhythm. Planned for ablation out-pt. Continue sotalol for afib. -Hold xarelto pending vascular surgery work up. Recommend resuming when ok with vascular surgery. (5) Atrial tachycardia Current Visit: No Status: Acute Per cardiology: -H/o persistent atrial tachycardia. On sotalol and cardizem. Cardizem increased during hospital stay. -Avg HR over last 24 hours 61 bpm. -Patient is pending Out-pt ablation with . Discussion w patient/family: The assessment and plan as outlined above was discussed with the patient who expressed understanding and agreement. All questions were answered. Thank you for involving us in the care of your patient. Please call with any questions. Discussed and reviewed with Subjective Principal diagnosis: CHF Interval history: Patient is s/p LHC yesterday. Denies chest pain. Reports right groin site pain. Objective Vital Signs, Last 4 Hours Temp Pulse Resp BP Pulse Ox 03/12/19 07:57 98.0 F 62 16 124/78 96 General: Conversant, No Apparent Distress HEENT: Atraumatic, Normocephaly, Mucus Membranes Moist Neck: No JVD, Normal carotid pulses Cardiac: Reg Rate and Rhythm, Normal S1 and S2, No Murmur Lungs: Normal Breath Sounds, No Wheeze, Rales, Rhonchi Neuro: Alert and responsive, No focal deficits noted Abdomen: Soft, Non-Tender Skin: No rashes noted on visualized skin, Other (Right groin access site with hardness with palpation, moderate area of ecchymosis. ) Musculoskeletal: No Chest Wall Tenderness Extremities: No Clubbing, No Cyanosis, No Edema, Normal Pulses Results 03/12/19 04:19 03/12/19 04:19 Lab Results Active Medications Acetaminophen (Tylenol) 650 mg PO Q6H PRN PRN Reason: Fever Stop: 09/10/19 22:00 Hydrocodone Bitart/Acetaminophen (Powers 10-325 Mg) 1 each PO Q6H PRN PRN Reason: mild to moderate pain Stop: 09/08/19 21:05 Acetylcysteine (Acetylcysteine 20%) 600 mg PO BID [facility] Stop: 03/13/19 09:01 Aspirin (Aspirin) 81 mg PO DAILY [facility] Stop: 09/09/19 09:01 Last Admin: 03/12/19 08:14 Dose: 81 mg Documented by: Collagenase (Santyl) 1 appl TP DAILY [facility]; Protocol Stop: 09/09/19 12:46 Last Admin: 03/12/19 08:16 Dose: Not Given Documented by: Dextrose/Water (Dextrose 50% (Syg)) 25 ml IVP AD PRN PRN Reason: Hypoglycemia Stop: 09/08/19 21:04 Diltiazem HCl (Cardizem Cd) 240 mg PO DAILY [facility] Stop: 09/10/19 09:01 Last Admin: 03/12/19 08:14 Dose: 240 mg Documented by: Famotidine (Pepcid) 20 mg PO BID PRN PRN Reason: Heartburn Gabapentin (Neurontin) 300 mg PO DAILY [facility] Stop: 09/09/19 09:01 Last Admin: 03/12/19 08:13 Dose: 300 mg Documented by: Glucagon (Glucagen) 1 mg IM ONCE PRN PRN Reason: Hypoglycemia Stop: 09/08/19 21:04 Glucose (Gluctose) 15 gm PO ONCE PRN PRN Reason: Hypoglycemia Stop: 09/08/19 21:04 Glucose (Gluctose) 30 gm PO ONCE PRN PRN Reason: Hypoglycemia Stop: 09/08/19 21:04 Dextrose (Dextrose 5%) 1,000 mls @ 100 mls/hr IVC .Q10H PRN PRN Reason: HYPOGLYCEMIA Stop: 09/08/19 21:04 Insulin Human Lispro (Humalog) 0 units SQ TIDAC [facility]; Protocol Stop: 09/09/19 07:31 Last Admin: 03/12/19 08:14 Dose: 6 units Documented by: Insulin Human Lispro (Humalog) 0 units SQ [facility]; Protocol Stop: 09/09/19 21:01 Last Admin: 03/11/19 21:40 Dose: Not Given Documented by: Isosorbide Mononitrate (Imdur) 30 mg PO DAILY [facility] Stop: 09/09/19 09:01 Last Admin: 03/12/19 08:14 Dose: 30 mg Documented by: Naloxone HCl (Narcan) 0.4 mg IVP Q2MPRN PRN PRN Reason: SEE COMMENTS Stop: 09/08/19 20:40 Ondansetron HCl (Zofran) 4 mg IVP Q8H PRN PRN Reason: Nausea And Vomiting Stop: 09/08/19 20:40 Last Admin: 03/12/19 08:24 Dose: 4 mg Documented by: Sertraline HCl (Zoloft) 150 mg PO HS [facility] Stop: 09/09/19 21:01 Last Admin: 03/11/19 21:39 Dose: 150 mg Documented by: Simvastatin (Zocor) 10 mg PO DAILY [facility]; Protocol Stop: 09/09/19 09:01 Last Admin: 03/12/19 08:14 Dose: 10 mg Documented by: Sotalol HCl (Betapace) 160 mg PO BID [facility] Stop: 09/09/19 09:01 Last Admin: 03/12/19 08:14 Dose: 160 mg Documented by: Laboratory Tests 03/11/19 03/12/19 03/12/19 04:29 04:19 04:19 WBC 12.4 H D Hgb 10.8 L Creatinine 1.41 H 1.79 H - Imaging and Cardiology Chest Xray: report reviewed Echo: report reviewed Cardiac cath: report reviewed - EKG Interpretation EKG results cardiology: other (Telemetry reviewed with average HR previous 12 hours noted to be 61, paced rhythm.) Consult Discharge Plan - Plan Referrals: Gideon Aguilera DO [Partnered Physician] - (Appt has been requested. )
[2019-03-12] MEDS: *HR* Acetylcysteine 20% 600 MG/3 ML ORAL SYRINGE PO SCH ×2 (11:13→20:44)
[2019-03-12] MEDS ORDERED: Famotidine 20 MG TABLET PO PRN (13:00)
[2019-03-12] MEDS ORDERED: Lidocaine -MPF 2% 2 ML VIAL INFILT ONE (13:45)
[2019-03-12] MEDS ORDERED: 0.9 % Sodium Chloride 1,000 ML IVC SCH (15:30)
--- NOTE | 2019-03-12 15:32 | Discharge Summary ---
Orders not resulted at time of discharge: Pending orders 03/11/19 09:36 CL Cardiac Catheterization [CL] Routine 03/13/19 04:00 Basic Metabolic Panel AM 0400 Complete Blood Count w/o Diff [HEME] AM 0400 Magnesium AM 0400 Date of Encounter: 03/12/19 - Discharge Diagnosis (1) Acute on chronic systolic (congestive) heart failure Status: Acute (2) Atrial tachycardia Status: Acute (3) Cardiomyopathy Status: Acute (4) CKD (chronic kidney disease), stage III Status: Chronic (5) Coronary artery disease Status: Chronic Qualifiers: Coronary Disease-Associated Artery/Lesion type: [place] artery [place] vs. transplanted heart: [place] heart Associated angina: without angina Qualified Code(s): I25.10 - Atherosclerotic heart disease of [place] coronary artery without angina pectoris (6) Diabetes Status: Chronic Qualifiers: Diabetes mellitus type: type 2 Diabetes mellitus press tender long goods insulin use: with press tender long goods use Diabetes mellitus complication status: with skin complications Diabetes mellitus complication detail: with foot ulcer Qualified Code(s): E11.621 - Type 2 diabetes mellitus with foot ulcer; L97.509 - Non-pressure chronic ulcer of other part of unspecified foot with unspecified severity; Z79.4 - roasterman (current) use of insulin (7) Hypertension Status: Chronic Qualifiers: Hypertension type: essential hypertension Qualified Code(s): I10 - Essential (primary) hypertension Hospital course: Ms. Ayon is a 73 year old female - Time Spent with Patient Total time spent providing and/or coordinating discharge services: - Discharge Medications Prescriptions: No Action Acyclovir [Zovirax] 800 mg PO DAILY Gabapentin [Neurontin] 300 mg PO DAILY Aspirin 81 mg PO DAILY Ascorbate Calcium/Bioflavonoid [[place]-C 1,000 mg Tablet] 1 tab PO DAILY Fenofibrate Nanocrystallized [Tricor] 145 mg PO DAILY Rivaroxaban [Xarelto] 20 mg PO DAILY Triamterene/HCTZ 37.5/25mg [Dyazide] 1 tab PO DAILY Omeprazole [PriLOSEC] 40 mg PO DAILY Isosorbide MONOnitrate (24 HR) [Imdur] 30 mg PO DAILY Montelukast [Singulair] 10 mg PO DAILY Dulaglutide [Trulicity] 0.75 mg SQ MO Metformin HCl [Fortamet] 500 mg PO BID Sertraline [Zoloft] 150 mg PO HS Simvastatin [Zocor] 40 mg PO DAILY Insulin Glargine [Lantus] 40 unit SQ BID Hydrocodone/Acetaminophen [[place] 10-325 Tablet] 1 tab PO Q6H PRN PRN Reason: Mild To Moderate Pain Fluticasone Propionate Nasal [Flonase] 1 spray NS DAILY PRN PRN Reason: Allergy Symptoms Furosemide [Lasix] 20 mg PO DAILY PRN PRN Reason: Edema raNITIdine HCl [Zantac] 150 mg PO BID PRN PRN Reason: Heartburn Sotalol HCl [Betapace] 160 mg PO BID Diltiazem CD (24hr) [Cardizem CD] 120 mg PO DAILY #30 cap.er.24h Home Medications: Acyclovir [Zovirax] 800 mg PO DAILY 04/20/15 [History] Ascorbate Calcium/Bioflavonoid [[place]-C 1,000 mg Tablet] 1 tab PO DAILY 09/19/16 [History] Aspirin 81 mg PO DAILY 09/19/16 [History] Fenofibrate Nanocrystallized [Tricor] 145 mg PO DAILY 09/19/16 [History] Gabapentin [Neurontin] 300 mg PO DAILY 09/19/16 [History] Isosorbide MONOnitrate (24 HR) [Imdur] 30 mg PO DAILY 09/19/16 [History] Montelukast [Singulair] 10 mg PO DAILY 09/19/16 [History] Omeprazole [PriLOSEC] 40 mg PO DAILY 09/19/16 [History] Rivaroxaban [Xarelto] 20 mg PO DAILY 09/19/16 [History] Triamterene/HCTZ 37.5/25mg [Dyazide] 1 tab PO DAILY 09/19/16 [History] Dulaglutide [Trulicity] 0.75 mg SQ MO 01/17/17 [History] Hydrocodone/Acetaminophen [[place] 10-325 Tablet] 1 tab PO Q6H PRN 10/05/18 [History] Insulin Glargine [Lantus] 40 unit SQ BID 10/05/18 [History] Metformin HCl [Fortamet] 500 mg PO BID 10/05/18 [History] Sertraline [Zoloft] 150 mg PO HS 10/05/18 [History] Simvastatin [Zocor] 40 mg PO DAILY 10/05/18 [History] Fluticasone Propionate Nasal [Flonase] 1 spray NS DAILY PRN 10/22/18 [History] Furosemide [Lasix] 20 mg PO DAILY PRN 11/28/18 [History] raNITIdine HCl [Zantac] 150 mg PO BID PRN 11/28/18 [History] Sotalol HCl [Betapace] 160 mg PO BID 02/02/19 [History] Diltiazem CD (24hr) [Cardizem CD] 120 mg PO DAILY #30 cap.er.24h 02/05/19 [Rx] Allergies/Adverse Reactions: Allergy/AdvReac Type Severity Reaction Status Date / Time pioglitazone AdvReac See Verified 11/28/18 07:31 Comments Date of admission: 03/10/19 12:50 Primary care physician: PCP NONE Consults: 03/09/19 21:08 Consult to Wound Care [CONS] Routine Reason for Consult: RLE venous stasis ulcer Call Completed: No 03/10/19 12:48 Consult to Cardiology [CONS] Routine Comment: Consulting Provider: Cardiology Catarina Reason for Consult: Acute on chronic systolic CHF exacerbation Time Notified: 12:50 Call Completed: Yes 03/11/19 12:29 Consult to Nurse Navigator [CONS] Routine Comment: CHF 03/12/19 09:02 Consult to Vascular Surgery [CONS] Routine Consulting Provider: Vascular Surgery Alissa Reason for Consult: Partially thrombosed pseudoaneurysm in the right groin- 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 )
--- NOTE | 2019-03-12 15:35 | Internal Med Progress Note ---
Hospitalist Progress Note - Encounter Date of Encounter: 03/12/19 Time of Encounter: 11:30 - Subjective Interval History: Pt denied any CP / SOB. Pt stated she is feeling better today. She did develop swelling and petechiae in Rt groin where she had LHC y/d. Her U/S of groin is concerning for partially thrombosed pseudo aneurysm. - Exam Vitals: Temp Pulse Resp BP Pulse Ox 97.7 F 60 16 106/66 97 03/12/19 15:15 03/12/19 15:15 03/12/19 15:15 03/12/19 15:15 03/12/19 15:15 Exam: Gen: Alert, awake, Oriented to time,place and person Chest: Diminished breath sounds B/L, mild wheezing, no crackles, No rales Heart: S1S2+, irregular rate and rythm, No murmurs Abd: Soft, NT, BS +, No organomegaly Ext: improving edema, pulses are palpable, No calf tenderness : Moderate swelling, erythema, petechiae and tenderness in Rt groin and thigh region noticed Neuro : No acute focal neuro deficits noticed - Assessment and Plan (1) Acute on chronic systolic (congestive) heart failure Current Visit: Yes Status: Acute Assessment and Plan: Her 2 D Echo showed - LVEF 40-45%, Moderate left vent systolic dysfunction Her symptoms improving LHC showed mild CAD only appreciate card recommendations Cont holding Lasix today since had mild EDWINA today started her on gentle IV hydration (2) Pseudoaneurysm following procedure Current Visit: Yes Status: Acute Assessment and Plan: Consulted vasuclar surgery - who did bed side thrombin inj cont close monitoring for now trend on H/H (3) Atrial tachycardia Current Visit: No Status: Acute Assessment and Plan: She does have Atrial tachycardia Her HR in 60's now Cont Cardizem t 240mg Cont Betapace Appreciate Card recommendations cont Xarelto for anti coag (4) Cardiomyopathy Current Visit: Yes Status: Acute Assessment and Plan: possible non ischemic cardiomyopathy care as above (5) CKD (chronic kidney disease), stage III Current Visit: Yes Status: Chronic Assessment and Plan: Cr trended up Mild EDWINA with CKD-3 started on gentle IVF avoid nephro toxic meds Cont Acetylcystiene Held Lasix for now (6) Coronary artery disease Current Visit: Yes Status: Chronic Assessment and Plan: Cont home meds ASA, Statin and Imdur (7) Diabetes Current Visit: Yes Status: Chronic Assessment and Plan: on ADA diet ISS @ Medium (8) Hypertension Current Visit: Yes Status: Chronic Assessment and Plan: cont home medications stable BP now - Time Spent with Patient Total time spent is greater than 50% in coordination of care (as documented) at patient's floor/unit and/or counseling patient: Internal Medicine: Result - Labs CBC & Chem 7: 03/12/19 04:19 03/12/19 04:19 Labs: Short CBC 03/12/19 Range/Units 04:19 WBC 12.4 H D (4.3-11.1) K/mcL Hgb 10.8 L (11.5-15.4) g/dL Hct 34.8 L (35.3-44.9) % Plt Count 350 (140-400) K/mcL BMP 03/12/19 04:19 Sodium 133 L Potassium 4.5 D Chloride 96 L Carbon Dioxide 27 BUN 34 H Creatinine 1.79 H Glucose 199 H Calcium 9.1 - ABG Interpretation ABG results: PT/INR, D-dimer D-Dimer 1067 ng/mLFEU (0-500) H 03/09/19 15:24 Consult Discharge Plan - Plan Referrals: Gideon gAuilera DO [Partnered Physician] - (Appt has been requested. ) ___ (6) Coronary artery disease Qualifiers: Coronary Disease-Associated Artery/Lesion type: [place] artery [place] vs. transplanted heart: [place] heart Associated angina: without angina Qualified Code(s): I25.10 - Atherosclerotic heart disease of [place] coronary artery without angina pectoris (7) Diabetes Qualifiers: Diabetes mellitus type: type 2 Diabetes mellitus residential insulin use: with residential use Diabetes mellitus complication status: with skin complications Diabetes mellitus complication detail: with foot ulcer Qualified Code(s): E11.621 - Type 2 diabetes mellitus with foot ulcer; L97.509 - Non-pressure chronic ulcer of other part of unspecified foot with unspecified severity; Z79.4 - correction (current) use of insulin (8) Hypertension Qualifiers: Hypertension type: essential hypertension Qualified Code(s): I10 - Essential (primary) hypertension
--- NOTE | 2019-03-12 16:45 | Vascular/Endovasc Consult Note ---
Date of Encounter: 03/12/19 Time of Encounter: 11:00 Assessment and Plan (1) Pseudoaneurysm of right femoral artery Status: Acute The patient has a right femoral pseudo-aneurysm. She underwent a left heart catheterization yesterday via the right common femoral artery. There is a firm pulsatile masses the right groin. At this time direct pressure will be held for additional attempts at hemostasis. If this is unsuccessful, the patient will require injection with thrombin to help resolve the pseudoaneurysm. If that is unsuccessful the patient may require surgical intervention. The risks and benefits and alternatives of the procedure were discussed the patient and all qu estions were answered. She is present understanding and wishes to proceed with the current plan of care. (2) Diabetes Status: Chronic She was counseled regarding atherosclerotic risk factor reduction. Qualifiers: Diabetes mellitus type: type 2 Diabetes mellitus shelter insulin use: with shelter use Diabetes mellitus complication status: with skin complications Diabetes mellitus complication detail: with foot ulcer Qualified Code(s): E11.621 - Type 2 diabetes mellitus with foot ulcer; L97.509 - Non-pressure chronic ulcer of other part of unspecified foot with unspecified severity; Z79.4 - shelter (current) use of insulin (3) Coronary artery disease Status: Chronic Qualifiers: Coronary Disease-Associated Artery/Lesion type: [place] artery [place] vs. transplanted heart: [place] heart Associated angina: without angina Qualified Code(s): I25.10 - Atherosclerotic heart disease of [place] coronary artery without angina pectoris (4) Hypertension Status: Chronic Qualifiers: Hypertension type: essential hypertension Qualified Code(s): I10 - Essential (primary) hypertension (5) PAF (paroxysmal atrial fibrillation) Status: Chronic - History of Present Illness Consult date: 03/12/19 Requesting physician: Bina Lemons Consult reason: Right femoral artery pseudoaneurysm Chief complaint: Right groin pain and swelling History of present illness: Ms. Ayon is a 73 year old female with a history of carotid artery disease, diabetes, atrial fibrillation hyperlipidemia and chronic kidney disease who presented with complaints of shortness of breath. As part of her evaluation she underwent a left heart catheterization via the right common femoral artery. The patient was doing well. However she began to develop acute right groin pain and swelling. She is found have a pseudoaneurysm. Vascular surgery was counsulted for further evaluation. At this time she reports her pain is adequately controlled. Patient denies any fevers or chills. She denies any chest pain or shortness of breath. 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 R TKR 1989. RIGHT ANKLE LYMPHOMA SURGERY 1992. OH WITH PCI x2 stents 2001. RIGHT SHOULDER repair 1999. Left Shoulder total replacement 2005. colonoscopy - Social History Smoking Status: Never smoker Smokeless Tobacco Status: No Alcohol use: none Drug use: none - Family History Mother Adopted: No Family Member Ethnicity: Non- Living Status: Hx Family Cardiac Disorders: Yes (CHF) Hx Family Respiratory Disorders: Yes Hx Family Cancer: No Hx Family GI Disorders: No Hx Family Endocrine Disorder: Yes (diabetic) Hx Family Neuromuscular Disorders: No Hx Family Neurologic Disorders: No Hx Family HEENT Disorders: No Hx Family Autoimmune Disorders: No Father Adopted: No Living Status: Hx Family Cardiac Disorders: Yes Hx Family Respiratory Disorders: Yes Hx Family Cancer: No Hx Family GI Disorders: No Hx Family Endocrine Disorder: Yes (Diabetic) Hx Family Neuromuscular Disorders: No Hx Family Neurologic Disorders: No Hx Family HEENT Disorders: No Hx Family Autoimmune Disorders: No Brother Living Status: Hx Family Cardiac Disorders: Yes Hx Family Neurologic Disorders: Yes (CVA) Medications and Allergies Acyclovir [Zovirax] 800 mg PO DAILY 04/20/15 [History] Ascorbate Calcium/Bioflavonoid [[place]-C 1,000 mg Tablet] 1 tab PO DAILY 09/19/16 [History] Aspirin 81 mg PO DAILY 09/19/16 [History] Fenofibrate Nanocrystallized [Tricor] 145 mg PO DAILY 09/19/16 [History] Gabapentin [Neurontin] 300 mg PO DAILY 09/19/16 [History] Isosorbide MONOnitrate (24 HR) [Imdur] 30 mg PO DAILY 09/19/16 [History] Montelukast [Singulair] 10 mg PO DAILY 09/19/16 [History] Omeprazole [PriLOSEC] 40 mg PO DAILY 09/19/16 [History] Dulaglutide [Trulicity] 0.75 mg SQ MO 01/17/17 [History] Hydrocodone/Acetaminophen [[place] 10-325 Tablet] 1 tab PO Q6H PRN 10/05/18 [History] Insulin Glargine [Lantus] 40 unit SQ BID 10/05/18 [History] Metformin HCl [Fortamet] 500 mg PO BID 10/05/18 [History] Sertraline [Zoloft] 150 mg PO HS 10/05/18 [History] Simvastatin [Zocor] 40 mg PO DAILY 10/05/18 [History] Fluticasone Propionate Nasal [Flonase] 1 spray NS DAILY PRN 10/22/18 [History] Furosemide [Lasix] 20 mg PO DAILY PRN 11/28/18 [History] raNITIdine HCl [Zantac] 150 mg PO BID PRN 11/28/18 [History] Sotalol HCl [Betapace] 160 mg PO BID 02/02/19 [History] Diltiazem CD (24hr) [Cardizem CD] 240 mg PO DAILY #30 cap.er.24h 03/17/19 [Rx] Rivaroxaban [Xarelto] 15 mg PO 1700 #30 tablet 03/17/19 [Rx] Allergy/AdvReac Type Severity Reaction Status Date / Time pioglitazone AdvReac See Verified 11/28/18 07:31 Comments All Systems Review: The remainder of the systems were reviewed and are negative - Constitutional Constitutional: no chills, no fever(s) - Cardiovascular Cardiovascular: no chest pain at rest, no dyspnea at rest Exam Vital Signs, Last 4 Hours Temp Pulse Resp BP Pulse Ox 03/12/19 15:15 97.7 F 60 16 106/66 97 General: Present: Conversant, No Apparent Distress HEENT: Present: Trachea midline, Pupils equal Neck: Absent: JVD, Lymphadenopathy, Left Carotid bruit, Right Carotid bruit Cardiac: Present: Normal S1 and S2, Irregular Rhythm Lungs: Present: Normal Breath Sounds, No Wheeze, Rales, Rhonchi Neuro: Present: Alert and responsive, No focal deficits noted, Motor nerves grossly intact, Sensory nerves grossly intact Abdomen: Present: Soft, Non-tender. Absent: Masses Vascular: Present: Normal capillary refill, Pulse, normal, Other (Ecchymosis at the right groin, pulsatile mass noted at the right groin.). Absent: Cyanosis, Edema Skin: Present: No rashes noted on visualized skin Consult Discharge Plan - Plan Instructions: Diltiazem (By mouth), Rivaroxaban (By mouth), Heart Failure (DC), Chronic Kidney Disease (DC), Diabetes Mellitus Type 2 in Adults (DC), Acute Wound Care (DC) Referrals: Gideon Aguilera DO [Partnered Physician] - 03/19/19 1:30 pm () Prescriptions: Diltiazem CD (24hr) [Cardizem CD] 240 mg PO DAILY #30 cap.er.24h Rivaroxaban [Xarelto] 15 mg PO 1700 #30 tablet
--- NOTE | 2019-03-12 16:51 | Operative Note ---
Date of procedure: 03/12/19 Pre-op diagnosis: Right femoral artery pseudoaneurysm Post-op diagnosis: same Procedure: Ultrasound-guided percutaneous injection of right femoral artery pseudoaneurysm with 5000 units of thrombin. Complications: None Anesthesia: local Surgeon: Сергей Mcgregor Was there an assistant secretary present: No Estimated blood loss (cc): 1 Specimen: None Condition: stable Disposition: no change Procedure in Detail: Indications: The patient is a 73 year female who developed a right femoral artery pseudoaneurysm after a left heart catheterization. The pseudoaneurysm persisted despite compressive therapy. Injection was recommended to resolve to pseudoaneurysm and reduce risk of bleeding. Procedure: The patient was identified and after informed consent was obtained, the patient was prepped and draped in normal sterile fashion. The total used identified. Local anesthetic was injected in the skin over the pseudoaneurysm. A spinal needle was advanced into the neck of the aneurysm and 5000 is of thrombin was injected. Immediately after the injection the pseudoaneurysm was noted to have resolved in the femoral vessels remained patent. A sterile dressing was applied.
[2019-03-13 07:01] LABS: Hematocrit 31.5 % (35.3-44.9); Mean Corpuscular HGB Conc 31.7 g/dL (31.6-35.5); Mean Corpuscular Hemoglobin 28.7 pg (28.0-33.3); Mean Corpuscular Volume 90.3 fL (83.0-100.0); Mean Platelet Volume 10.6 fL (9.4-12.4); Platelet Count 273 K/mcL (140-400); Red Blood Count 3.49 M/mcL (3.82-4.97); Red Cell Distribution Width 16.5 % (11.5-14.5); White Blood Count 10.5 K/mcL (4.3-11.1)
[2019-03-13 07:18] LABS: Potassium 4.4 mEq/L (3.5-5.1)
[2019-03-13 07:19] LABS: Calcium 9.1 mg/dL (8.6-10.3); Magnesium 2.1 mg/dL (1.6-2.6)
[2019-03-13] MEDS: Ondansetron 4 MG/2 ML VIAL IVP PRN ×2 (08:13→19:36)
[2019-03-13] MEDS: Aspirin 81 MG TAB.CHEW PO SCH (08:18)
[2019-03-13] MEDS: Isosorbide MONOnitrate (24 HR) 30 MG TAB.ER.24H PO SCH (08:18)
[2019-03-13] MEDS: Gabapentin 300 MG CAPSULE PO SCH (08:18)
[2019-03-13] MEDS: Diltiazem CD (24hr) 240 MG CAPSULE PO SCH (08:18)
[2019-03-13] MEDS: *HR* Acetylcysteine 20% 600 MG/3 ML ORAL SYRINGE PO SCH (08:19)
[2019-03-13] MEDS: Insulin LISPRO 300 UNITS/3 ML VIAL SQ SCH ×4 (08:20→21:10)
--- NOTE | 2019-03-13 10:35 | Cardiology Progress Note ---
Date of Encounter: 03/13/19 Time of Encounter: 09:45 Assessment and Plan (1) Acute systolic CHF (congestive heart failure) Current Visit: Yes Status: Acute Per cardiology: -Acute systolic CHF. EF 40-45% moderate segmental systolic dysfunction. Previous Echo 08/2018 EF 50-55%. -BnP 406. CT with right pleural effusion. No PE. Had been diuresed with IV l asix. Currently net negative ~1.6L. Near euvolemic on exam. Lasix now on hold due to EDWINA. -On BB. Not on jacque/arb due to CKD. -S/p LHC yesterday with prelim report reviewed with moderate, non-obstructive CAD. -Was on 20mg PRN lasix at home. -Lasix now on hold. Consider 20mg of daily lasix po prior to discharge if renal function will tolerate. -CHF education reviewed with patient. -Strict i/os, fluid restriction, daily weights. -Consider addition of jacque/arb prior to discharge if renal function and BP will tolerate. (2) Pseudoaneurysm following procedure Current Visit: Yes Status: Acute Per cardiology: -Right groin pseudoaneurysm noted post LHC. Right groin hard to palpation and large ecchymosis noted. -Hemoglobin stable, BP stable. -Vascular surgery has been consulted and site was injected with thrombin. -Pending repeat ultrasound this morning. -Appreciate vascular surgery recommendations. (3) EDWINA (acute kidney injury) Current Visit: Yes Status: Acute Per cardiology: -Known CKD, now with EDWINA on CKD. -Creatinine worsening today. -IV fluids ordered per primary service. -Appreciate primary service recommendations. (4) Coronary artery disease Current Visit: Yes Status: Chronic Per cardiology: -H/o CAD s/p PCI to the LAD and RCA in 2003. Last LHC 2014 showed patent stents. Lcx with moderate disease. -Repeat C this admission as above with moderate, non-obstructive CAD. - On Bb, Asa, statin. Qualifiers: Coronary Disease-Associated Artery/Lesion type: [place] artery [place] vs. transplanted heart: [place] heart Associated angina: without angina Qualified Code(s): I25.10 - Atherosclerotic heart disease of [place] coronary artery without angina pectoris (5) PAF (paroxysmal atrial fibrillation) Current Visit: No Status: Chronic Per cardiology: -H/oPAF. Currently with atrial tachycardia, paced rhythm. Planned for ablation out-pt. Continue sotalol for afib. -Hold xarelto pending vascular surgery work up. Recommend resuming when ok with vascular surgery. (6) Atrial tachycardia Current Visit: No Status: Acute Per cardiology: -H/o persistent atrial tachycardia. On sotalol and cardizem. Cardizem increased during hospital stay. -Avg HR over last 24 hours 61 bpm. -Patient is pending Out-pt ablation with . Discussion w patient/family: The assessment and plan as outlined above was discussed with the patient who expressed understanding and agreement. All questions were answered. Thank you for involving us in the care of your patient. Please call with any questions. Discussed and reviewed with Subjective Principal diagnosis: CHF Interval history: Patient is s/p [facility] this admission. Denies chest pain. Reports right groin site pain. Reports nausea. Objective Vital Signs, Last 4 Hours Temp Pulse Resp BP Pulse Ox 03/13/19 06:38 97.6 F 60 14 113/72 92 General: Conversant, No Apparent Distress HEENT: Atraumatic, Normocephaly, Mucus Membranes Moist Neck: No JVD, Normal carotid pulses Cardiac: Reg Rate and Rhythm, Normal S1 and S2, No Murmur Lungs: Normal Breath Sounds, No Wheeze, Rales, Rhonchi Neuro: Alert and responsive, No focal deficits noted Abdomen: Soft, Non-Tender Skin: No rashes noted on visualized skin, Other (Right foot dressing noted. Right groin access site with hardened area noted. Large area of ecchymosis noted. ) Musculoskeletal: No Chest Wall Tenderness Extremities: No Clubbing, No Cyanosis, No Edema, Normal Pulses Results 03/13/19 05:38 03/13/19 05:38 Lab Results Active Medications Acetaminophen (Tylenol) 650 mg PO Q6H PRN PRN Reason: Fever Stop: 09/10/19 22:00 Hydrocodone Bitart/Acetaminophen ([place] 10-325 Mg) 1 each PO Q6H PRN PRN Reason: mild to moderate pain Stop: 09/08/19 21:05 Aspirin (Aspirin) 81 mg PO DAILY [facility] Stop: 09/09/19 09:01 Last Admin: 03/13/19 08:18 Dose: 81 mg Documented by: Collagenase (Santyl) 1 appl TP DAILY [facility]; Protocol Stop: 09/09/19 12:46 Last Admin: 03/13/19 08:21 Dose: Not Given Documented by: Dextrose/Water (Dextrose 50% (Syg)) 25 ml IVP AD PRN PRN Reason: Hypoglycemia Stop: 09/08/19 21:04 Diltiazem HCl (Cardizem Cd) 240 mg PO DAILY [facility] Stop: 09/10/19 09:01 Last Admin: 03/13/19 08:18 Dose: 240 mg Documented by: Famotidine (Pepcid) 20 mg PO DAILY PRN PRN Reason: Heartburn Stop: 09/08/19 21:05 Gabapentin (Neurontin) 300 mg PO DAILY [facility] Stop: 09/09/19 09:01 Last Admin: 03/13/19 08:18 Dose: 300 mg Documented by: Glucagon (Glucagen) 1 mg IM ONCE PRN PRN Reason: Hypoglycemia Stop: 09/08/19 21:04 Glucose (Gluctose) 15 gm PO ONCE PRN PRN Reason: Hypoglycemia Stop: 09/08/19 21:04 Glucose (Gluctose) 30 gm PO ONCE PRN PRN Reason: Hypoglycemia Stop: 09/08/19 21:04 Dextrose (Dextrose 5%) 1,000 mls @ 100 mls/hr IVC .Q10H PRN PRN Reason: HYPOGLYCEMIA Stop: 09/08/19 21:04 Insulin Human Lispro (Humalog) 0 units SQ TIDAC [facility]; Protocol Stop: 09/09/19 07:31 Last Admin: 03/13/19 08:20 Dose: 6 units Documented by: Insulin Human Lispro (Humalog) 0 units SQ [facility]; Protocol Stop: 09/09/19 21:01 Last Admin: 03/12/19 20:44 Dose: 5 units Documented by: Isosorbide Mononitrate (Imdur) 30 mg PO DAILY [facility] Stop: 09/09/19 09:01 Last Admin: 03/13/19 08:18 Dose: 30 mg Documented by: Naloxone HCl (Narcan) 0.4 mg IVP Q2MPRN PRN PRN Reason: SEE COMMENTS Stop: 09/08/19 20:40 Ondansetron HCl (Zofran) 4 mg IVP Q8H PRN PRN Reason: Nausea And Vomiting Stop: 09/08/19 20:40 Last Admin: 03/13/19 08:13 Dose: 4 mg Documented by: Sertraline HCl (Zoloft) 150 mg PO HS [facility] Stop: 09/09/19 21:01 Last Admin: 03/12/19 20:43 Dose: 150 mg Documented by: Simvastatin (Zocor) 10 mg PO DAILY [facility]; Protocol Stop: 09/09/19 09:01 Last Admin: 03/13/19 08:21 Dose: 10 mg Documented by: Sotalol HCl (Betapace) 160 mg PO BID [facility] Stop: 09/09/19 09:01 Last Admin: 03/13/19 08:18 Dose: 160 mg Documented by: Laboratory Tests 03/12/19 03/13/19 03/13/19 04:19 05:38 05:38 Hgb 10.0 L Creatinine 1.79 H 2.02 H - Imaging and Cardiology Chest Xray: report reviewed Echo: report reviewed Cardiac cath: report reviewed - EKG Interpretation EKG results cardiology: other (Telemetry reviewd with average HR previous 12 hours noted to be 61, paced rhythm. PVCs noted.) Consult Discharge Plan - Plan Referrals: Gideon Aguilera DO [Partnered Physician] - 03/19/19 1:30 pm ()
[2019-03-13] MEDS ORDERED: 0.9 % Sodium Chloride 1,000 ML ONE (12:38)
[2019-03-13] MEDS ORDERED: 0.9 % Sodium Chloride 1,000 ML IVC SCH (12:45)
[2019-03-13] MEDS ORDERED: Lactulose Oral Soln 20 GM/30 ML UDC PO PRN (13:31)
--- NOTE | 2019-03-13 13:36 | Internal Med Progress Note ---
Hospitalist Progress Note - Encounter Date of Encounter: 03/13/19 Time of Encounter: 10:30 - Subjective Interval History: Pt was seen and examined at bed side. Pt stated she is still feeling weak and lethargic denied any SOB / TY. She does c/o constipation and distended abd.. No BM for 3 days Her Rt groin swelling and pain better today. - Exam Vitals: Temp Pulse Resp BP Pulse Ox 97.5 F L 65 16 91/53 96 03/13/19 11:22 03/13/19 11:22 03/13/19 11:22 03/13/19 11:52 03/13/19 11:22 Exam: Gen: Alert, awake, Oriented to time,place and person Chest: Diminished breath sounds B/L, mild wheezing, no crackles, No rales Heart: S1S2+, irregular rate and rythm, No murmurs Abd: Soft, NT, BS +, No organomegaly Ext: improving edema, pulses are palpable, No calf tenderness : Improving swelling, erythema, petechiae and tenderness in Rt groin and thigh region noticed Neuro : No acute focal neuro deficits noticed - Assessment and Plan (1) Acute on chronic systolic (congestive) heart failure Current Visit: Yes Status: Acute Assessment and Plan: Her 2 D Echo showed - LVEF 40-45%, Moderate left vent systolic dysfunction Her symptoms improving LHC showed mild CAD only appreciate card recommendations Cont holding Lasix since her EDWINA seems to be worsening cont gentle IV hydration (2) Pseudoaneurysm following procedure Current Visit: Yes Status: Acute Assessment and Plan: Consulted vasuclar surgery - who did bed side thrombin inj Improving swelling and petechiae cont close monitoring for now stable Hb @ 10.0 (3) Atrial tachycardia Current Visit: No Status: Acute Assessment and Plan: She does have Atrial tachycardia Her HR in 60's now Cont Cardizem at 240mg Cont Betapace Appreciate Card recommendations cont Xarelto for anti coag (4) Cardiomyopathy Current Visit: Yes Status: Acute Assessment and Plan: possible non ischemic cardiomyopathy care as above (5) CKD (chronic kidney disease), stage III Current Visit: Yes Status: Chronic Assessment and Plan: Cr trending up Mild EDWINA with CKD-3 today Cr @ 2.02 con gentle IVF avoid nephro toxic meds Cont Acetylcystiene Held Lasix for now (6) Coronary artery disease Current Visit: Yes Status: Chronic Assessment and Plan: Cont home meds ASA, Statin and Imdur (7) Diabetes Current Visit: Yes Status: Chronic Assessment and Plan: on ADA diet ISS @ Medium (8) Hypertension Current Visit: Yes Status: Chronic Assessment and Plan: cont home medications stable BP now - Time Spent with Patient Total time spent is greater than 50% in coordination of care (as documented) at patient's floor/unit and/or counseling patient: Internal Medicine: Result - Labs CBC & Chem 7: 03/13/19 05:38 03/13/19 05:38 Labs: Short CBC 03/13/19 Range/Units 05:38 WBC 10.5 (4.3-11.1) K/mcL Hgb 10.0 L (11.5-15.4) g/dL Hct 31.5 L (35.3-44.9) % Plt Count 273 (140-400) K/mcL BMP 03/13/19 05:38 Sodium 133 L Potassium 4.4 Chloride 94 L Carbon Dioxide 29 BUN 45 H Creatinine 2.02 H Glucose 219 H Calcium 9.1 - ABG Interpretation ABG results: PT/INR, D-dimer D-Dimer 1067 ng/mLFEU (0-500) H 03/09/19 15:24 Consult Discharge Plan - Plan Referrals: Gideon Aguilera DO [Partnered Physician] - 03/19/19 1:30 pm () (6) Coronary artery disease Qualifiers: Coronary Disease-Associated Artery/Lesion type: [place] artery [place] vs. transplanted heart: [place] heart Associated angina: without angina Qualified Code(s): I25.10 - Atherosclerotic heart disease of [place] coronary artery without angina pectoris (7) Diabetes Qualifiers: Diabetes mellitus type: type 2 Diabetes mellitus termination clerk insulin use: with assisted use Diabetes mellitus complication status: with skin complications Diabetes mellitus complication detail: with foot ulcer Qualified Code(s): E11.621 - Type 2 diabetes mellitus with foot ulcer; L97.509 - Non-pressure chronic ulcer of other part of unspecified foot with unspecified severity; Z79.4 - terminal press operator (current) use of insulin (8) Hypertension Qualifiers: Hypertension type: essential hypertension Qualified Code(s): I10 - Essential (primary) hypertension
[2019-03-13] MEDS ORDERED: *HR* Rivaroxaban 10 MG TABLET PO SCH (17:00)
[2019-03-13] MEDS: Sennosides/Docusate Sodium TABLET PO SCH ×2 (17:26→21:11)
--- NOTE | 2019-03-13 18:39 | Vascular/Endovas Progress Note ---
Date of Encounter: 03/13/19 Time of Encounter: 16:45 - Assessment and plan (1) Pseudoaneurysm of right femoral artery Current Visit: Yes Status: Acute The patient developed a right femoral artery pseudoaneurysm. She is status post thrombin injection. Her duplex today reveals no evidence of residual pseudoaneurysm. She may ambulate today. Avoid heavy lifting. Observe post catheterization precautions. 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 transplanted heart: [place] heart Associated angina: without angina Qualified Code(s): I25.10 - Atherosclerotic heart disease of [place] coronary artery without angina pectoris (4) Hypertension Current Visit: Yes Status: Chronic Qualifiers: Hypertension type: essential hypertension Qualified Code(s): I10 - Essential (primary) hypertension (5) PAF (paroxysmal atrial fibrillation) Current Visit: No Status: Chronic - Subjective Interval history: The patient reports that her right leg is feeling much better. She does report she had a nosebleed earlier today. She denies any chest pain or shortness of breath. Vital Signs, Last 4 Hours Temp Pulse Resp BP Pulse Ox 03/13/19 16:12 96.1 F L 65 16 111/70 91 - Physical Examination General: Present: Conversant HEENT: Present: Pupils equal Cardiac: Present: Normal S1 and S2 Lungs: Present: Normal Breath Sounds Neuro: Present: Alert and responsive, Motor nerves grossly intact, Sensory nerves grossly intact Vascular: Present: Normal capillary refill, Pulse, normal, Other (No pulsatile mass a right groin, soft hematoma present in the right groin). Absent: Cy anosis, Edema Abdomen: Present: Soft, Non-tender Skin: Present: Other (Ecchymosis at right groin unchanged) Results 03/13/19 05:38 03/13/19 05:38 Lab Results, Last 24 hours 03/13/19 03/13/19 05:38 05:38 WBC 10.5 Hgb 10.0 L Hct 31.5 L Plt Count 273 Sodium 133 L Potassium 4.4 Chloride 94 L Carbon Dioxide 29 BUN 45 H Creatinine 2.02 H Glucose 219 H Calcium 9.1 Magnesium 2.1 - Imaging / Other Tests Non Invasive Vascular Testing: report reviewed (Duplex negative for pseudoaneurysm), image reviewed Consult Discharge Plan - Plan Referrals: Gideon Aguilera DO [Partnered Physician] - 03/19/19 1:30 pm ()
[2019-03-14 04:35] LABS: Hematocrit 31.9 % (35.3-44.9); Hemoglobin 10.2 g/dL (11.5-15.4); Mean Corpuscular Hemoglobin 29.3 pg (28.0-33.3); Mean Corpuscular Volume 91.7 fL (83.0-100.0); Mean Platelet Volume 10.5 fL (9.4-12.4); Platelet Count 289 K/mcL (140-400); Red Blood Count 3.48 M/mcL (3.82-4.97); Red Cell Distribution Width 16.4 % (11.5-14.5); White Blood Count 10.8 K/mcL (4.3-11.1)
[2019-03-14 04:49] LABS: Magnesium 2.1 mg/dL (1.6-2.6)
[2019-03-14] MEDS: Aspirin 81 MG TAB.CHEW PO SCH (08:58)
[2019-03-14] MEDS: Isosorbide MONOnitrate (24 HR) 30 MG TAB.ER.24H PO SCH (08:58)
[2019-03-14] MEDS: Diltiazem CD (24hr) 240 MG CAPSULE PO SCH (08:58)
[2019-03-14] MEDS: Sennosides/Docusate Sodium TABLET PO SCH ×2 (08:58→21:32)
[2019-03-14] MEDS: Gabapentin 300 MG CAPSULE PO SCH (08:58)
[2019-03-14] MEDS: Insulin LISPRO 300 UNITS/3 ML VIAL SQ SCH ×4 (08:59→21:33)
[2019-03-14] MEDS ORDERED: Bisacodyl 10 MG RECTAL SUPPOSITORY RC ONE (11:05)
--- NOTE | 2019-03-14 14:03 | Internal Med Progress Note ---
Hospitalist Progress Note - Encounter Date of Encounter: 03/14/19 Time of Encounter: 11:00 - Subjective Interval History: Ms. Ayon is a 73 year old female with a PMHx of Systolic CHF, CAD, DM, asthma, Afib on sotalol and xarelto, HLD, GERD and CKD III who presented to ED with a complaint of SOB and b/l LE edema from past one week. Pt also stated she has been having atrial tachcyardia for which she is scheduled for cardiac ablation in March, however lately she has been having palpitations and her HR was in 120's at times. She was admitted in the hospital and placed her on tele. Her serial troponin x 3 were negative. She SOB, TY and b/l LE edema improved with Lasix. Her 2 D Echo showed LVEF 40-45%. 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 However she developed partially thrombosed pseudo aneurysm. She was seen by vascualr surgery who did thrombin inj. Her pseudo aneurysm improved. She did have worsening EDWINA with CKD-3. Today patient seen examined and bedside. Pt still c/o constipation and abdominal distention. No BM's x 4 days - Exam Vitals: Temp Pulse Resp BP Pulse Ox 98.6 F 65 16 113/67 90 03/14/19 11:17 03/14/19 11:17 03/14/19 11:17 03/14/19 11:17 03/14/19 11:17 Exam: Gen: Alert, awake, Oriented to time,place and person Chest: Diminished breath sounds B/L, mild wheezing, no crackles, No rales Heart: S1S2+, irregular rate and rythm, No murmurs Abd: Soft, NT, BS +, No organomegaly Ext: improving edema, pulses are palpable, No calf tenderness : Improving swelling, erythema, petechiae and tenderness in Rt groin and thigh region noticed Neuro : No acute focal neuro deficits noticed - Assessment and Plan (1) Acute on chronic systolic (congestive) heart failure Current Visit: Yes Status: Acute Assessment and Plan: Her 2 D Echo showed - LVEF 40-45%, Moderate left vent systolic dysfunction Her symptoms improving LHC showed mild CAD only appreciate card recommendations Cont holding Lasix since her EDWINA seems to be worsening (2) Pseudoaneurysm following procedure Current Visit: Yes Status: Acute Assessment and Plan: Consulted vasuclar surgery - who did bed side thrombin inj Improving swelling and petechiae cont close monitoring for now stable Hb @ 10.0 (3) Atrial tachycardia Current Visit: No Status: Acute Assessment and Plan: She does have Atrial tachycardia Her HR in 60's now Cont Cardizem at 240mg Cont Betapace Appreciate Card recommendations cont Xarelto for anti coag (4) Cardiomyopathy Current Visit: Yes Status: Acute Assessment and Plan: possible non ischemic cardiomyopathy care as above (5) CKD (chronic kidney disease), stage III Current Visit: Yes Status: Chronic Assessment and Plan: Cr stable @ 2.02 Mild EDWINA with CKD-3 today Cr @ 2.02 avoid nephro toxic meds Cont Acetylcystiene Held Lasix for now (6) Coronary artery disease Current Visit: Yes Status: Chronic Assessment and Plan: Cont home meds ASA, Statin and Imdur (7) Diabetes Current Visit: Yes Status: Chronic Assessment and Plan: on ADA diet ISS @ Medium (8) Hypertension Current Visit: Yes Status: Chronic Assessment and Plan: cont home medications stable BP now (9) Constipation Current Visit: Yes Status: Acute Assessment and Plan: Cont Miralax and Senna BID as RONNELL on Lactulose PRN Also ordered Dulcolax [place] - Time Spent with Patient Total time spent is greater than 50% in coordination of care (as documented) at patient's floor/unit and/or counseling patient: Internal Medicine: Result - Labs CBC & Chem 7: 03/14/19 04:01 03/14/19 04:01 Labs: Short CBC 03/14/19 Range/Units 04:01 WBC 10.8 (4.3-11.1) K/mcL Hgb 10.2 L (11.5-15.4) g/dL Hct 31.9 L (35.3-44.9) % Plt Count 289 (140-400) K/mcL BMP 03/14/19 04:01 Sodium 130 L Potassium 4.0 Chloride 94 L Carbon Dioxide 26 BUN 52 H Creatinine 2.02 H Glucose 206 H Calcium 9.0 - ABG Interpretation ABG results: PT/INR, D-dimer D-Dimer 1067 ng/mLFEU (0-500) H 03/09/19 15:24 Consult Discharge Plan - Plan Referrals: Gideon Aguilera DO [Partnered Physician] - 03/19/19 1:30 pm () (6) Coronary artery disease Qualifiers: Coronary Disease-Associated Artery/Lesion type: [place] artery [place] vs. transplanted heart: [place] heart Associated angina: without angina Qualified Code(s): I25.10 - Atherosclerotic heart disease of [place] coronary artery without angina pectoris (7) Diabetes Qualifiers: Diabetes mellitus type: type 2 Diabetes mellitus intermediate insulin use: with intermediate use Diabetes mellitus complication status: with skin complications Diabetes mellitus complication detail: with foot ulcer Qualified Code(s): E11.621 - Type 2 diabetes mellitus with foot ulcer; L97.509 - Non-pressure chronic ulcer of other part of unspecified foot with unspecified severity; Z79.4 - terminal superintendent (current) use of insulin (8) Hypertension Qualifiers: Hypertension type: essential hypertension Qualified Code(s): I10 - Essential (primary) hypertension
--- NOTE | 2019-03-14 14:11 | Cardiology Progress Note ---
Date of Encounter: 03/14/19 Time of Encounter: 14:08 Assessment and Plan (1) Acute systolic CHF (congestive heart failure) Current Visit: Yes Status: Acute Per cardiology: -Acute systolic CHF. EF 40-45% moderate segmental systolic dysfunction. Previous Echo 08/2018 EF 50-55%. -BnP 406. CT with right pleural effusion. No PE. Had been diuresed with IV l asix. Currently net negative ~1.6L. Near euvolemic on exam. Lasix now on hold due to EDWINA. -On BB. Not on jacque/arb due to CKD. -S/p LHC yesterday with prelim report reviewed with moderate, non-obstructive CAD. -Was on 20mg PRN lasix at home. -Lasix now on hold. Consider 20mg of daily lasix po prior to discharge if renal function will tolerate. -CHF education reviewed with patient. -Strict i/os, fluid restriction, daily weights. -Consider addition of jacque/arb prior to discharge if renal function and BP will tolerate. (2) Pseudoaneurysm following procedure Current Visit: Yes Status: Acute Per cardiology: -Right groin pseudoaneurysm noted post LHC. Right groin hard to palpation and large ecchymosis noted. -Hemoglobin stable, BP stable. -Vascular surgery has been consulted and site was injected with thrombin. -Pending repeat ultrasound with thrombosed pseudoaneurysm. -Appreciate vascular surgery recommendations. (3) EDWINA (acute kidney injury) Current Visit: Yes Status: Acute Per cardiology: -Known CKD, now with EDWINA on CKD. -Creatinine same today. -IV fluids ordered per primary service. -Appreciate primary service recommendations. (4) Coronary artery disease Current Visit: Yes Status: Chronic Per cardiology: -H/o CAD s/p PCI to the LAD and RCA in 2003. Last LHC 2014 showed patent stents. Lcx with moderate disease. -Repeat C this admission as above with moderate, non-obstructive CAD. - On Bb, Asa, statin. Qualifiers: Coronary Disease-Associated Artery/Lesion type: [place] artery [place] vs. transplanted heart: [place] heart Associated angina: without angina Qualified Code(s): I25.10 - Atherosclerotic heart disease of [place] coronary artery without angina pectoris (5) PAF (paroxysmal atrial fibrillation) Current Visit: No Status: Chronic Per cardiology: -H/oPAF. Currently with atrial tachycardia, paced rhythm. Planned for ablation out-pt. Continue sotalol for afib. -ON xarelto for anticoagulation. -HR controlled. (6) Atrial tachycardia Current Visit: No Status: Acute Per cardiology: -H/o persistent atrial tachycardia. On sotalol and cardizem. Cardizem increased during hospital stay. -Avg HR over last 24 hours 61 bpm. -Patient is pending Out-pt ablation with . Discussion w patient/family: The assessment and plan as outlined above was discussed with the patient who expressed understanding and agreement. All questions were answered. Thank you f or involving us in the care of your patient. Please call with any questions. Discussed and reviewed with Subjective Principal diagnosis: CHF Interval history: Patient is s/p [facility] this admission. Denies chest pain. Reports right groin site pain. States she feels better today. Objective Vital Signs, Last 4 Hours Temp Pulse Resp BP Pulse Ox 03/14/19 11:17 98.6 F 65 16 113/67 90 General: Conversant, No Apparent Distress HEENT: Atraumatic, Normocephaly, Mucus Membranes Moist Neck: No JVD, Normal carotid pulses Cardiac: Reg Rate and Rhythm, Normal S1 and S2, No Murmur Lungs: Normal Breath Sounds, No Wheeze, Rales, Rhonchi Neuro: Alert and responsive, No focal deficits noted Abdomen: Soft, Non-Tender Skin: No rashes noted on visualized skin, Other (Right groin access site with hardened area noted, large area of ecchymosis. ) Musculoskeletal: No Chest Wall Tenderness Extremities: No Clubbing, No Cyanosis, No Edema, Normal Pulses Results 03/14/19 04:01 03/14/19 04:01 Lab Results Active Medications Acetaminophen (Tylenol) 650 mg PO Q6H PRN PRN Reason: Fever Stop: 09/10/19 22:00 Hydrocodone Bitart/Acetaminophen ([place] 10-325 Mg) 1 each PO Q6H PRN PRN Reason: mild to moderate pain Stop: 09/08/19 21:05 Aspirin (Aspirin) 81 mg PO DAILY RONNELL Stop: 09/09/19 09:01 Last Admin: 03/14/19 08:58 Dose: 81 mg Documented by: Collagenase (Santyl) 1 appl TP DAILY [facility]; Protocol Stop: 09/09/19 12:46 Last Admin: 03/14/19 09:29 Dose: 1 appl Documented by: Dextrose/Water (Dextrose 50% (Syg)) 25 ml IVP AD PRN PRN Reason: Hypoglycemia Stop: 09/08/19 21:04 Diltiazem HCl (Cardizem Cd) 240 mg PO DAILY [facility] Stop: 09/10/19 09:01 Last Admin: 03/14/19 08:58 Dose: 240 mg Documented by: Famotidine (Pepcid) 20 mg PO DAILY PRN PRN Reason: Heartburn Stop: 09/08/19 21:05 Gabapentin (Neurontin) 300 mg PO DAILY [facility] Stop: 09/09/19 09:01 Last Admin: 03/14/19 08:58 Dose: 300 mg Documented by: Glucagon (Glucagen) 1 mg IM ONCE PRN PRN Reason: Hypoglycemia Stop: 09/08/19 21:04 Glucose (Gluctose) 15 gm PO ONCE PRN PRN Reason: Hypoglycemia Stop: 09/08/19 21:04 Glucose (Gluctose) 30 gm PO ONCE PRN PRN Reason: Hypoglycemia Stop: 09/08/19 21:04 Dextrose (Dextrose 5%) 1,000 mls @ 100 mls/hr IVC .Q10H PRN PRN Reason: HYPOGLYCEMIA Stop: 09/08/19 21:04 Insulin Human Lispro (Humalog) 0 units SQ TIDAC [facility]; Protocol Stop: 09/09/19 07:31 Last Admin: 03/14/19 13:09 Dose: Not Given Documented by: Insulin Human Lispro (Humalog) 0 units SQ [facility]; Protocol Stop: 09/09/19 21:01 Last Admin: 03/13/19 21:10 Dose: 6 units Documented by: Isosorbide Mononitrate (Imdur) 30 mg PO DAILY [facility] Stop: 09/09/19 09:01 Last Admin: 03/14/19 08:58 Dose: 30 mg Documented by: Lactulose (Lactulose) 10 gm PO BID PRN PRN Reason: constipation Stop: 09/12/19 21:01 Last Admin: 03/13/19 21:12 Dose: 10 gm Documented by: Naloxone HCl (Narcan) 0.4 mg IVP Q2MPRN PRN PRN Reason: SEE COMMENTS Stop: 09/08/19 20:40 Ondansetron HCl (Zofran) 4 mg IVP Q8H PRN PRN Reason: Nausea And Vomiting Stop: 09/08/19 20:40 Last Admin: 03/13/19 19:36 Dose: 4 mg Documented by: Polyethylene Glycol (Miralax) 17 gm PO DAILY [facility] Stop: 09/12/19 13:46 Last Admin: 03/14/19 08:58 Dose: 17 gm Documented by: Rivaroxaban (Xarelto) 15 mg PO 1700 [facility] Stop: 09/13/19 17:01 Senna/Docusate Sodium (Senna Plus) 1 each PO BID [facility]; Protocol Stop: 09/12/19 13:46 Last Admin: 03/14/19 08:58 Dose: 1 each Documented by: Sertraline HCl (Zoloft) 150 mg PO HS [facility] Stop: 09/09/19 21:01 Last Admin: 03/13/19 21:10 Dose: 150 mg Documented by: Simvastatin (Zocor) 10 mg PO DAILY [facility]; Protocol Stop: 09/09/19 09:01 Last Admin: 03/14/19 08:58 Dose: 10 mg Documented by: Sotalol HCl (Betapace) 160 mg PO BID [facility] Stop: 09/09/19 09:01 Last Admin: 03/14/19 08:58 Dose: 160 mg Documented by: Laboratory Tests 03/12/19 03/13/19 03/14/19 04:19 05:38 04:01 Creatinine 1.79 H 2.02 H 2.02 H - Imaging and Cardiology Chest Xray: report reviewed Echo: report reviewed Cardiac cath: report reviewed - EKG Interpretation EKG results cardiology: other (Telemetry reviewed with average HR previous 12 hours noted to be 61, paced rhythm.) Consult Discharge Plan - Plan Referrals: Gideon Aguilera DO [Partnered Physician] - 03/19/19 1:30 pm ()
[2019-03-14] MEDS: *HR* Rivaroxaban 15 MG TABLET PO SCH (17:03)
[2019-03-14] MEDS: Ondansetron 4 MG/2 ML VIAL IVP PRN (21:41)
[2019-03-15 01:41] LABS: Calcium 9.5 mg/dL (8.6-10.3)
[2019-03-15] MEDS: Gabapentin 300 MG CAPSULE PO SCH (08:32)
[2019-03-15] MEDS: Sennosides/Docusate Sodium TABLET PO SCH ×2 (08:32→20:41)
[2019-03-15] MEDS: Aspirin 81 MG TAB.CHEW PO SCH (08:32)
[2019-03-15] MEDS: Diltiazem CD (24hr) 240 MG CAPSULE PO SCH (08:32)
--- NOTE | 2019-03-15 08:33 | Internal Med Progress Note ---
Hospitalist Progress Note - Encounter Date of Encounter: 03/15/19 Time of Encounter: 08:31 - Subjective Interval History: Ms. Ayon is a 73 year old female with a PMHx of Systolic CHF, CAD, DM, asthma, Afib on sotalol and xarelto, HLD, GERD and CKD III who presented to ED with a complaint of SOB and b/l LE edema from past one week. Pt also stated she has been having atrial tachycardia for which she is scheduled for cardiac ablation in March, however lately she has been having palpitations and her HR was in 120's at times. She was admitted in the hospital and placed her on tele. Her serial troponin x 3 were negative. She SOB, TY and b/l LE edema improved with Lasix. Her 2 D Echo showed LVEF 40-45%. Pt was evaluated by furnace keeper who did LHC 3 days ago which showed mild CAD only. However she developed partially thrombosed pseudo aneurysm. She was seen by vascualr surgery who did thrombin inj. Her pseudo aneurysm improved. She did have worsening EDWINA with CKD-3. Patient seen and examined in the room. She reports improved bilateral leg swell ing, palpitation has resolved. - Exam Vitals: Temp Pulse Resp BP Pulse Ox 97.9 F 60 15 116/70 93 03/15/19 06:38 03/15/19 06:38 03/15/19 06:38 03/15/19 06:38 03/15/19 06:38 Exam: Gen: Alert, awake, Oriented to time,place and person Chest: Diminished breath sounds B/L, mild wheezing, no crackles, No rales Heart: S1S2+, irregular rate and rythm, No murmurs Abd: Soft, NT, BS +, No organomegaly Ext: improving edema, pulses are palpable, No calf tenderness : Improving swelling, erythema, petechiae and tenderness in Rt groin and thigh region noticed Neuro : No acute focal neuro deficits noticed - Assessment and Plan (1) Diabetes Current Visit: Yes Status: Chronic Assessment and Plan: on ADA diet ISS @ Medium (2) Coronary artery disease Current Visit: Yes Status: Chronic Assessment and Plan: Cont home meds ASA, Statin and Imdur (3) Hypertension Current Visit: Yes Status: Chronic Assessment and Plan: cont home medications stable BP now (4) CKD (chronic kidney disease), stage III Current Visit: Yes Status: Chronic Assessment and Plan: Cr 1.82 , yesterday 2.02, improving. Cont Acetylcystiene Held Lasix for now (5) Atrial tachycardia Current Visit: No Status: Acute (6) Acute on chronic systolic (congestive) heart failure Current Visit: Yes Status: Acute Assessment and Plan: Her 2 D Echo showed - LVEF 40-45%, Moderate left vent systolic dysfunction Her symptoms improving LHC showed mild CAD only appreciate card recommendations Cont holding Lasix since her EDWINA seems to be worsening (7) Cardiomyopathy Current Visit: Yes Status: Acute Assessment and Plan: possible non ischemic cardiomyopathy care as above (8) Pseudoaneurysm following procedure Current Visit: Yes Status: Acute Assessment and Plan: Consulted vasuclar surgery - who did bed side thrombin inj Improving swelling and petechiae cont close monitoring for now stable Hb @ 10.0 (9) Constipation Current Visit: Yes Status: Acute Assessment and Plan: Cont Miralax and Senna BID as RONNELL on Lactulose PRN Also ordered Dulcolax PRn Had a BM since yesterday. - Time Spent with Patient Total time spent is greater than 50% in coordination of care (as documented) at patient's floor/unit and/or counseling patient: Greater than 35 minutes Plan of Care Discussed with: patient Internal Medicine: Result - Labs CBC & Chem 7: 03/14/19 04:01 03/15/19 00:49 Labs: BMP 03/15/19 00:49 Sodium 128 L Potassium 4.0 Chloride 92 L Carbon Dioxide 26 BUN 56 H Creatinine 1.82 H Glucose 195 H Calcium 9.5 - ABG Interpretation ABG results: PT/INR, D-dimer D-Dimer 1067 ng/mLFEU (0-500) H 03/09/19 15:24 Consult Discharge Plan - Plan Referrals: Gideon Aguilera DO [Partnered Physician] - 03/19/19 1:30 pm () (1) Diabetes Qualifiers: Diabetes mellitus type: type 2 Diabetes mellitus senior living insulin use: with intermission coordinator use Diabetes mellitus complication status: with skin complications Diabetes mellitus complication detail: with foot ulcer Qualified Code(s): E11.621 - Type 2 diabetes mellitus with foot ulcer; L97.509 - Non-pressure chronic ulcer of other part of unspecified foot with unspecified severity; Z79.4 - assisted (current) use of insulin (2) Coronary artery disease Qualifiers: Coronary Disease-Associated Artery/Lesion type: [place] artery [place] vs. transplanted heart: [place] heart Associated angina: without angina Qualified Code(s): I25.10 - Atherosclerotic heart disease of [place] coronary artery wi thout angina pectoris (3) Hypertension Qualifiers: Hypertension type: essential hypertension Qualified Code(s): I10 - Essential (primary) hypertension
[2019-03-15] MEDS: Isosorbide MONOnitrate (24 HR) 30 MG TAB.ER.24H PO SCH (08:35)
[2019-03-15] MEDS: Insulin LISPRO 300 UNITS/3 ML VIAL SQ SCH ×4 (08:36→20:42)
--- NOTE | 2019-03-15 08:39 | Event Note ---
Date of Encounter: 03/15/19 Time of Encounter: 08:38 - Cardiology Event Note Patient's renal function is now improving, management per primary service. Pseudoaneurysm has been injected with thrombin and thrombosed. Cardiology will sign off. Patient has pending ablation with Dr.John Fry. Will arrange outpati ent follow up.
[2019-03-15] MEDS: Ondansetron 4 MG/2 ML VIAL IVP PRN (11:57)
[2019-03-15] MEDS: *HR* Rivaroxaban 15 MG TABLET PO SCH (17:08)
[2019-03-16 06:39] LABS: Hematocrit 29.9 % (35.3-44.9); Hemoglobin 9.5 g/dL (11.5-15.4); Mean Corpuscular HGB Conc 31.8 g/dL (31.6-35.5); Mean Corpuscular Hemoglobin 28.3 pg (28.0-33.3); Mean Platelet Volume 10.4 fL (9.4-12.4); Platelet Count 262 K/mcL (140-400); Red Blood Count 3.36 M/mcL (3.82-4.97); Red Cell Distribution Width 16.1 % (11.5-14.5); White Blood Count 10.2 K/mcL (4.3-11.1)
[2019-03-16 07:01] LABS: Calcium 9.2 mg/dL (8.6-10.3); Potassium 4.2 mEq/L (3.5-5.1)
[2019-03-16] MEDS: Diltiazem CD (24hr) 240 MG CAPSULE PO SCH (08:42)
[2019-03-16] MEDS: Aspirin 81 MG TAB.CHEW PO SCH (08:42)
[2019-03-16] MEDS: Gabapentin 300 MG CAPSULE PO SCH (08:42)
[2019-03-16] MEDS: Sennosides/Docusate Sodium TABLET PO SCH ×2 (08:42→21:45)
[2019-03-16] MEDS: Isosorbide MONOnitrate (24 HR) 30 MG TAB.ER.24H PO SCH (08:43)
[2019-03-16] MEDS: Insulin LISPRO 300 UNITS/3 ML VIAL SQ SCH ×4 (08:43→21:47)
--- NOTE | 2019-03-16 10:06 | Internal Med Progress Note ---
Hospitalist Progress Note - Encounter Date of Encounter: 03/16/19 Time of Encounter: 10:04 - Subjective Interval History: Ms. Ayon is a 73 year old female with a PMHx of Systolic CHF, CAD, DM, asthma, Afib on sotalol and xarelto, HLD, GERD and CKD III who presented to ED with a complaint of SOB and b/l LE edema from past one week. Pt also stated she has been having atrial tachycardia for which she is scheduled for cardiac ablation in March, however lately she has been having palpitations and her HR was in 120's at times. She was admitted in the hospital and placed her on tele. Her serial troponin x 3 were negative. She SOB, TY and b/l LE edema improved with Lasix. Her 2 D Echo showed LVEF 40-45%. Pt was evaluated by shop and alteration tailor who did LHC 3 days ago which showed mild CAD only. However she developed partially thrombosed pseudo aneurysm. She was seen by vascualr surgery who did thrombin inj. Her pseudo aneurysm improved. She did have worsening EDWINA with CKD-3. Lasix was on hold, renal function is improving. Patient seen and examined in the room. She reports improved bilateral leg swelling, palpitation has resolved. - Exam Vitals: Temp Pulse Resp BP Pulse Ox 97.4 F L 62 17 105/62 91 03/16/19 07:39 03/16/19 07:39 03/16/19 07:39 03/16/19 07:39 03/16/19 07:39 Exam: Gen: Alert, awake, Oriented to time,place and person Chest: Diminished breath sounds B/L, mild wheezing, no crackles, No rales Heart: S1S2+, irregular rate and rythm, No murmurs Abd: Soft, NT, BS +, No organomegaly Ext: improving edema, pulses are palpable, No calf tenderness : Improving swelling, erythema, petechiae and tenderness in Rt groin and thigh region noticed Neuro : No acute focal neuro deficits noticed - Assessment and Plan (1) Diabetes Current Visit: Yes Status: Chronic Assessment and Plan: on ADA diet ISS @ Medium (2) Coronary artery disease Current Visit: No Status: Chronic Assessment and Plan: Cont home meds ASA, Statin and Imdur (3) Hypertension Current Visit: No Status: Chronic Assessment and Plan: cont home medications stable BP now (4) CKD (chronic kidney disease), stage III Current Visit: Yes Status: Chronic Assessment and Plan: Cr 1.36 , yesterday 1.82, improving. Cont Acetylcystiene Held Lasix for now (5) Atrial tachycardia Current Visit: No Status: Acute Assessment and Plan: She does have Atrial tachycardia Her HR in 60's now Cont Cardizem at 240mg Cont Betapace Appreciate Card recommendations, patient will follow up with Dr. Fry as ou tpatient for ablation procedure. cont Xarelto for anti coag (6) Acute on chronic systolic (congestive) heart failure Current Visit: Yes Status: Acute Assessment and Plan: Her 2 D Echo showed - LVEF 40-45%, Moderate left vent systolic dysfunction Her symptoms improving LHC showed mild CAD only Close to euvolemic on physical exam, due to EDWINA, continue to hold Lasix. (7) Cardiomyopathy Current Visit: Yes Status: Acute Assessment and Plan: possible non ischemic cardiomyopathy care as above (8) Pseudoaneurysm following procedure Current Visit: Yes Status: Acute Assessment and Plan: Consulted vasuclar surgery - who did bed side thrombin inj Improving swelling and petechiae cont close monitoring for now stable Hb @ 10.0 (9) Constipation Current Visit: Yes Status: Acute Assessment and Plan: Cont Miralax and Senna BID as RONNELL on Lactulose PRN Also ordered Dulcolax PRn Had a BM since yesterday. DVT Prophylaxis: Patient on Xarelto. - Time Spent with Patient Total time spent is greater than 50% in coordination of care (as documented) at patient's floor/unit and/or counseling patient: Greater than 35 minutes Plan of Care Discussed with: patient Internal Medicine: Result - Labs CBC & Chem 7: 03/16/19 06:22 03/16/19 06:22 Labs: Short CBC 03/16/19 Range/Units 06:22 WBC 10.2 (4.3-11.1) K/mcL Hgb 9.5 L (11.5-15.4) g/dL Hct 29.9 L (35.3-44.9) % Plt Count 262 (140-400) K/mcL BMP 03/16/19 06:22 Sodium 126 L Potassium 4.2 Chloride 94 L Carbon Dioxide 24 BUN 48 H Creatinine 1.36 H Glucose 181 H Calcium 9.2 - ABG Interpretation ABG results: PT/INR, D-dimer D-Dimer 1067 ng/mLFEU (0-500) H 03/09/19 15:24 Consult Discharge Plan - Plan Referrals: Gideon Aguilera DO [Partnered Physician] - 03/19/19 1:30 pm () (1) Diabetes Qualifiers: Diabetes mellitus type: type 2 Diabetes mellitus emt intermediate insulin use: with emt intermediate use Diabetes mellitus complication status: with skin complications Diabetes mellitus complication detail: with foot ulcer Qualified Code(s): E11.621 - Type 2 diabetes mellitus with foot ulcer; L97.509 - Non-pressure chronic ulcer of other part of unspecified foot with unspecified severity; Z79.4 - terminal carman (current) use of insulin (2) Coronary artery disease Qualifiers: Coronary Disease-Associated Artery/Lesion type: [place] artery [place] vs. transplanted heart: [place] heart Associated angina: without angina Qualified Code(s): I25.10 - Atherosclerotic heart disease of [place] coronary artery without angina pectoris (3) Hypertension Qualifiers: Hypertension type: essential hypertension Qualified Code(s): I10 - Essential (primary) hypertension
[2019-03-16] MEDS: Ondansetron 4 MG/2 ML VIAL IVP PRN (13:11)
[2019-03-16] MEDS: *HR* Rivaroxaban 15 MG TABLET PO SCH (16:55)
[2019-03-17 03:20] LABS: Hematocrit 29.4 % (35.3-44.9); Hemoglobin 9.4 g/dL (11.5-15.4); Mean Corpuscular Hemoglobin 29.2 pg (28.0-33.3); Mean Corpuscular Volume 91.3 fL (83.0-100.0); Mean Platelet Volume 10.6 fL (9.4-12.4); Platelet Count 268 K/mcL (140-400); Red Blood Count 3.22 M/mcL (3.82-4.97); White Blood Count 8.6 K/mcL (4.3-11.1)
[2019-03-17 03:40] LABS: Calcium 9.2 mg/dL (8.6-10.3); Potassium 4.5 mEq/L (3.5-5.1)
[2019-03-17 07:49] VITALS: BP 119/68
[2019-03-17] MEDS: Diltiazem CD (24hr) 240 MG CAPSULE PO SCH (09:03)
[2019-03-17] MEDS: Sennosides/Docusate Sodium TABLET PO SCH (09:03)
[2019-03-17] MEDS: Aspirin 81 MG TAB.CHEW PO SCH (09:03)
[2019-03-17] MEDS: Gabapentin 300 MG CAPSULE PO SCH (09:04)
[2019-03-17] MEDS: Isosorbide MONOnitrate (24 HR) 30 MG TAB.ER.24H PO SCH (09:05)
--- NOTE | 2019-03-17 09:14 | Discharge Summary ---
- NOTES TO OUTPATIENT PROVIDER Notes to Outpatient Provider: f/u with PCP within a week. F/u with cardiology Dr. Fry as scheduled. F/u with renal within 2-3 weeks. Date of Encounter: 03/17/19 Time of Encounter: 09:08 - Discharge Diagnosis (1) Diabetes Priority: Secondary Status: Chronic Assessment and Plan: on ADA diet ISS @ Medium Qualifiers: Diabetes mellitus type: type 2 Diabetes mellitus ferry terminal agent insulin use: with ferry terminal agent use Diabetes mellitus complication status: with skin c omplications Diabetes mellitus complication detail: with foot ulcer Qualified Code(s): E11.621 - Type 2 diabetes mellitus with foot ulcer; L97.509 - Non-pressure chronic ulcer of other part of unspecified foot with unspecified severity; Z79.4 - jail (current) use of insulin (2) Coronary artery disease Priority: Secondary Status: Chronic Assessment and Plan: Cont home meds ASA, Statin and Imdur Qualifiers: Coronary Disease-Associated Artery/Lesion type: [place] artery E[place] vs. transplanted heart: [place] heart Associated angina: without angina Qualified Code(s): I25.10 - Atherosclerotic heart disease of [place] coronary artery without angina pectoris (3) Hypertension Priority: Secondary Status: Chronic Qualifiers: Hypertension type: essential hypertension Qualified Code(s): I10 - Essential (primary) hypertension (4) CKD (chronic kidney disease), stage III Priority: Secondary Status: Chronic Assessment and Plan: Cr 1.36 , yesterday 1.82, improving. Cont Acetylcystiene Held Lasix for now (5) Atrial tachycardia Priority: Primary Status: Acute Assessment and Plan: She does have Atrial tachycardia Her HR in 60's now Cont Cardizem at 240mg Cont Betapace Appreciate Card recommendations, patient will follow up with Dr. Fry as outpatient for ablation procedure. cont Xarelto for anti coag (6) Acute on chronic systolic (congestive) heart failure Priority: Primary Status: Acute Assessment and Plan: Her 2 D Echo showed - LVEF 40-45%, Moderate left vent systolic dysfunction Her symptoms improving LHC showed mild CAD only Close to euvolemic on physical exam, due to EDWINA, continue to hold Lasix. (7) Cardiomyopathy Priority: Primary Status: Acute Assessment and Plan: possible non ischemic cardiomyopathy care as above Qualifiers: Cardiomyopathy type: unspecified Qualified Code(s): I42.9 - Cardiomyopathy, unspecified (8) Pseudoaneurysm following procedure Priority: Primary Status: Acute Assessment and Plan: Consulted vasuclar surgery - who did bed side thrombin inj Improving swelling and petechiae cont close monitoring for now stable Hb @ 10.0 (9) Constipation Priority: Primary Status: Acute Qualifiers: Constipation type: unspecified constipation type Qualified Code(s): K59.00 - Constipation, unspecified Hospital course: Ms. Ayon is a 73 year old female with a PMHx of HFpEF, CAD, DM, asthma, Afib on sotalol and xarelto, HLD, GERD, CKD III who presents to ED with a complaint of SOB x 1 week. Patient states that shortness of breath has been progressive and worsening since onset. It is exacerbated with exertion, lying flat. She has never experienced something of this extent before. She also admits to waking up at night gasping for air with a choking sensation as well as lower extremity swelling, 9 pound weight gain in the last week. Denies any symptoms of fevers, sputum production, chills, chest pains. She does admit to a nonproductive cough with some chest pressure more often when she lies flat but is nonexertional. In the emergency department, heart rate was mildly elevated at 113, respiratory rate 20, she is tolerating room air. Laboratory results were significant for a baseline anemia with hemoglobin 10.9, sodium 135, BUN/creatinine/creatinine of 31/1.34 which is near her baseline. Troponin was 0.03 and BNP was 406. D-dimer was ordered and was mildly elevated at about [address] of the chest was ordered. This showed no evidence of pulmonary embolus but did show a right- sided pleural effusion with atelectasis. Cardiology was consulted, repeat echo showed LV ejection fraction 40-45%, moderate left ventricular systolic dysfunction. The dose of Cardizem was adjusted Addition to sotalol. Left heart catheter was also performed which revealed minimum CAD. However, patient developed complication from arterial puncture site at the right groin, a pseudo-aneurysm was noted, vascular surgery was consulted, thrombin injection was performed. While in the hospital, her renal function worsened, level of creatinine was rising, Lasix was discontinued as well as other diuretics. Her renal function gradually improved, on the day, creatinine was 1.3, at her baseline. Lasix was started at 20 mg daily due to mild fluid overload on physical exam. Patient is discharged home today, she was instructed to continue taking Lasix 20 mg daily until seen by PCP and nephrology. Continue take Cardizem in addition to sotalol until seen by cardiology. Discharge discussed with: patient Time spent discussing smoking cessation with patient: more than 10 minutes - Time Spent with Patient Total time spent providing and/or coordinating discharge services: Time spent: Greater than 30 minutes - Discharge Medications Prescriptions: New Diltiazem CD (24hr) [Cardizem CD] 240 mg PO DAILY #30 cap.er.24h Rivaroxaban [Xarelto] 15 mg PO 1700 #30 tablet Continued Acyclovir [Zovirax] 800 mg PO DAILY Gabapentin [Neurontin] 300 mg PO DAILY Aspirin 81 mg PO DAILY Ascorbate Calcium/Bioflavonoid [[place]-C 1,000 mg Tablet] 1 tab PO DAILY Fenofibrate Nanocrystallized [Tricor] 145 mg PO DAILY Omeprazole [PriLOSEC] 40 mg PO DAILY Isosorbide MONOnitrate (24 HR) [Imdur] 30 mg PO DAILY Montelukast [Singulair] 10 mg PO DAILY Dulaglutide [Trulicity] 0.75 mg SQ MO Metformin HCl [Fortamet] 500 mg PO BID Sertraline [Zoloft] 150 mg PO HS Simvastatin [Zocor] 40 mg PO DAILY Insulin Glargine [Lantus] 40 unit SQ BID Hydrocodone/Acetaminophen [[place] 10-325 Tablet] 1 tab PO Q6H PRN PRN Reason: Mild To Moderate Pain Fluticasone Propionate Nasal [Flonase] 1 spray NS DAILY PRN PRN Reason: Allergy Symptoms Furosemide [Lasix] 20 mg PO DAILY PRN PRN Reason: Edema raNITIdine HCl [Zantac] 150 mg PO BID PRN PRN Reason: Heartburn Sotalol HCl [Betapace] 160 mg PO BID Discontinued Rivaroxaban [Xarelto] 20 mg PO DAILY Triamterene/HCTZ 37.5/25mg [Dyazide] 1 tab PO DAILY Diltiazem CD (24hr) [Cardizem CD] 120 mg PO DAILY #30 cap.er.24h Home Medications: Acyclovir [Zovirax] 800 mg PO DAILY 04/20/15 [History] Ascorbate Calcium/Bioflavonoid [[place]-C 1,000 mg Tablet] 1 tab PO DAILY 09/19/16 [History] Aspirin 81 mg PO DAILY 09/19/16 [History] Fenofibrate Nanocrystallized [Tricor] 145 mg PO DAILY 09/19/16 [History] Gabapentin [Neurontin] 300 mg PO DAILY 09/19/16 [History] Isosorbide MONOnitrate (24 HR) [Imdur] 30 mg PO DAILY 09/19/16 [History] Montelukast [Singulair] 10 mg PO DAILY 09/19/16 [History] Omeprazole [PriLOSEC] 40 mg PO DAILY 09/19/16 [History] Dulaglutide [Trulicity] 0.75 mg SQ MO 01/17/17 [History] Hydrocodone/Acetaminophen [[place] 10-325 Tablet] 1 tab PO Q6H PRN 10/05/18 [History] Insulin Glargine [Lantus] 40 unit SQ BID 10/05/18 [History] Metformin HCl [Fortamet] 500 mg PO BID 10/05/18 [History] Sertraline [Zoloft] 150 mg PO HS 10/05/18 [History] Simvastatin [Zocor] 40 mg PO DAILY 10/05/18 [History] Fluticasone Propionate Nasal [Flonase] 1 spray NS DAILY PRN 10/22/18 [History] Furosemide [Lasix] 20 mg PO DAILY PRN 11/28/18 [History] raNITIdine HCl [Zantac] 150 mg PO BID PRN 11/28/18 [History] Sotalol HCl [Betapace] 160 mg PO BID 02/02/19 [History] Diltiazem CD (24hr) [Cardizem CD] 240 mg PO DAILY #30 cap.er.24h 03/17/19 [Rx] Rivaroxaban [Xarelto] 15 mg PO 1700 #30 tablet 03/17/19 [Rx] Allergies/Adverse Reactions: Allergy/AdvReac Type Severity Reaction Status Date / Time pioglitazone AdvReac See Verified 11/28/18 07:31 Comments Date of admission: 03/10/19 12:50 Primary care physician: PCP NONE Consults: 03/09/19 21:08 Consult to Wound Care [CONS] Routine Reason for Consult: RLE venous stasis ulcer Call Completed: No 03/10/19 12:48 Consult to Cardiology [CONS] Routine Comment: Consulting Provider: Cardiology Alissa Reason for Consult: Acute on chronic systolic CHF exacerbation Time Notified: 12:50 Call Completed: Yes 03/11/19 12:29 Consult to Nurse Navigator [CONS] Routine Comment: CHF 03/12/19 09:02 Consult to Vascular Surgery [CONS] Routine Consulting Provider: Vascular Surgery [place] Reason for Consult: Partially thrombosed pseudoaneurysm in the right groin- [employer]IST level after LHC Time Notified: 09:03 Call Completed: Yes Anticipated date of discharge: 03/17/19 - Constitutional Vitals: Temp Pulse Resp BP Pulse Ox 97.6 F 62 16 119/68 95 03/17/19 07:44 03/17/19 07:44 03/17/19 07:44 03/17/19 07:44 03/17/19 07:44 General appearance: Present: A&O X 3 Exam: Gen: Alert, awake, Oriented to time,place and person Chest: Diminished breath sounds B/L, mild wheezing, no crackles, No rales Heart: S1S2+, irregular rate and rythm, No murmurs Abd: Soft, NT, BS +, No organomegaly Ext: improving edema, pulses are palpable, No calf tenderness : Improving swelling, erythema, petechiae and tenderness in Rt groin and thigh region noticed Neuro : No acute focal neuro deficits noticed - Patient Status Disposition: Home, Self-Care Condition: Good Functional capacity at discharge: independent ambulation Overall status at discharge: patient is progressing back to baseline - Discharge Instructions Follow Up With: Gideon Aguilera DO [Partnered Physician] - 03/19/19 1:30 pm () - Diet and Activity Activity: increase activity as tolerated Diet: diabetic diet, low fat, low cholesterol, low salt diet
== END 2019-03-17 11:29 | disposition home or self-care (01) | DRG 286 ==
LOC: EMEROOARM 15:00 → 3BNU 15:00 → SUATTDRO 20:21 → 3BNU 20:33
PROVIDERS: ADMIT Internal Medicine Nephrology; ATTEND Family Medicine

== ENCOUNTER 2019-04-03 06:28 | Observation (INO) ==
[2019-04-03] MEDS ORDERED: Ondansetron 4 MG/2 ML VIAL IVP PRN (11:03)
[2019-04-03] MEDS ORDERED: Naloxone 0.4 MG/ML INJ IVP PRN (11:03)
[2019-04-03] MEDS ORDERED: Acetaminophen 325 MG TABLET PO PRN (11:03)
[2019-04-03] MEDS ORDERED: *HR* Dextrose 50 % in Water (Syg) 50 ML SYRINGE IVP PRN (11:06)
[2019-04-03] MEDS ORDERED: D5% in Water 1,000 ML IVC PRN (11:06)
[2019-04-03] MEDS ORDERED: Dextrose Gel 15 GM/37.5 ML TUBE PO PRN ×2 (11:06)
[2019-04-03] MEDS ORDERED: Famotidine 20 MG TABLET PO PRN (11:31)
[2019-04-03 11:40] LABS: BUN/Creatinine Ratio 22 (6-26); Blood Urea Nitrogen 20 mg/dL (8-23); Calcium 9.1 mg/dL (8.6-10.3); Carbon Dioxide 28 mEq/L (23-29); Chloride 97 mEq/L (98-107); Glucose 163 mg/dL (70-105); Osmolality,Calculated 284 (280-300); Potassium 4.3 mEq/L (3.5-5.1); Sodium 134 mEq/L (136-145); eGFR For African Americans > 60 (> 60); eGFR For Non-African Americans > 60 (> 60)
[2019-04-03] MEDS ORDERED: *HR* Metoprolol 5 MG/5 ML VIAL IVP PRN (13:21)
[2019-04-03] MEDS ORDERED: Insulin LISPRO 300 UNITS/3 ML VIAL SQ SCH ×2 (16:30→21:00)
[2019-04-03] MEDS: Insulin LISPRO 300 UNITS/3 ML VIAL SQ SCH ×2 (17:38→21:29)
[2019-04-03] MEDS: *HR* Rivaroxaban 15 MG TABLET PO SCH (18:06)
[2019-04-04] MEDS ORDERED: Acetaminophen IV 1,000 MG/100 ML INFUS..BTL IVPB ONE (06:01)
[2019-04-04] MEDS: Fenofibrate 54 MG TABLET PO SCH (08:12)
[2019-04-04] MEDS: Gabapentin 300 MG CAPSULE PO SCH (08:12)
[2019-04-04] MEDS: Isosorbide MONOnitrate (24 HR) 30 MG TAB.ER.24H PO SCH (08:12)
[2019-04-04] MEDS: Aspirin 81 MG TAB.CHEW PO SCH (08:12)
[2019-04-04] MEDS: Insulin LISPRO 300 UNITS/3 ML VIAL SQ SCH ×4 (08:25→21:22)
[2019-04-04] MEDS ORDERED: Furosemide 20 MG TABLET PO SCH (09:00)
[2019-04-04] MEDS: *HR* Rivaroxaban 15 MG TABLET PO SCH (17:10)
[2019-04-04] MEDS ORDERED: Insulin DETEMIR 100 UNIT/ML X5UNITS SQ SCH (21:00)
[2019-04-05 00:53] LABS: Adenovirus F 40/41 PCR Not detected (Not detect); Astrovirus PCR Not detected (Not detect); Campylobacter by PCR Not detected (Not detect); Cryptosporidium by PCR Not detected (Not detect); Cyclospora cayetanensis PCR Not detected (Not detect); E. coli O157 by PCR Not detected (Not detect); Entamoeba histolytica PCR Not detected (Not detect); Enteroaggregative E.coli(EAEC) Not detected (Not detect); Enteropathogenic E.coli(EPEC) Not detected (Not detect); Enterotoxigenic E.coli (ETEC) Not detected (Not detect); Giardia lamblia PCR Not detected (Not detect); Norovirus GI/GII PCR Not detected (Not detect); Plesiomonas shigelloides PCR Not detected (Not detect); Rotavirus A PCR Not detected (Not detect); Salmonella PCR Not detected (Not detect); Sapovirus PCR Not detected (Not detect); Shig/EnteroinvasiveE coli EIEC Not detected (Not detect); Shigalike tox-prod E coli STEC Not detected (Not detect); Vibrio PCR Not detected (Not detect); Vibrio cholerae PCR Not detected (Not detect); Yersinia enterocolitica PCR Not detected (Not detect)
[2019-04-05 00:57] LABS: C.difficile Toxin A/B Gene PCR DETECTED (Not detect)
[2019-04-05 07:35] LABS: Basophils % 0.7 %; Eosinophils # 0.2 K/mcL (0.0-0.6); Eosinophils % 3.7 %; Hemoglobin 9.7 g/dL (11.5-15.4); Immature Granulocytes % 0.2 % (0-4); Lymphocytes # 1.1 K/mcL (0.6-4.6); Mean Corpuscular HGB Conc 31.3 g/dL (31.6-35.5); Mean Corpuscular Hemoglobin 28.4 pg (28.0-33.3); Mean Corpuscular Volume 90.6 fL (83.0-100.0); Mean Platelet Volume 10.9 fL (9.4-12.4); Monocytes # 0.6 K/mcL (0.0-1.3); Monocytes % 11.2 %; Neutrophils # 3.5 K/mcL (1.6-8.9); Platelet Count 223 K/mcL (140-400); Red Blood Count 3.42 M/mcL (3.82-4.97); Red Cell Distribution Width 17.2 % (11.5-14.5); Segmented Neutrophils % 64.2 %; White Blood Count 5.5 K/mcL (4.3-11.1)
[2019-04-05 07:58] LABS: BUN/Creatinine Ratio 21 (6-26); Blood Urea Nitrogen 19 mg/dL (8-23); Calcium 9.3 mg/dL (8.6-10.3); Carbon Dioxide 28 mEq/L (23-29); Chloride 98 mEq/L (98-107); Glucose 115 mg/dL (70-105); Osmolality,Calculated 287 (280-300); Potassium 3.8 mEq/L (3.5-5.1); Sodium 137 mEq/L (136-145); eGFR For African Americans > 60 (> 60); eGFR For Non-African Americans > 60 (> 60)
[2019-04-05] MEDS: Insulin LISPRO 300 UNITS/3 ML VIAL SQ SCH ×2 (08:59→12:23)
[2019-04-05] MEDS: Gabapentin 300 MG CAPSULE PO SCH (09:06)
[2019-04-05] MEDS: Aspirin 81 MG TAB.CHEW PO SCH (09:06)
[2019-04-05] MEDS: Fenofibrate 54 MG TABLET PO SCH (09:06)
[2019-04-05] MEDS: Vancomycin Oral Soln 125 MG/2.5 ML UDC PO SCH ×2 (09:07→12:23)
[2019-04-05] MEDS: Isosorbide MONOnitrate (24 HR) 30 MG TAB.ER.24H PO SCH (09:07)
[2019-04-05 11:55] VITALS: BP 102/64
== END 2019-04-05 15:24 | disposition home or self-care (01) ==
LOC: 2ANU → SUATTDRO 09:45
PROVIDERS: ADMIT Internal Medicine; ATTEND Student in an Organized Health Care Education/Training Program